=== PATIENT | male | born 1955 | race Caucasian/White ===

== ENCOUNTER → 2016-10-14 | Outpatient (CLI) | payer BC ==
[~2016-10-14] MED LIST: ANT PO; ASPEC81; GEMF600T3 PO; METO50TA7; MULT-506 PO; OMEG10007 PO; TERBINAFINE PO; [UNRECOGNIZED DRUG - OTHER] PO
[2016-10-14 13:58] LABS: ALT/SGPT 57 U/L (12-78); AST/SGOT 36 U/L (15-37); BLOOD UREA NITROGEN 13 mg/dl (7-18); CALCIUM 8.8 mg/dl (8.5-10.1); CARBON DIOXIDE 28 mmol/L (21-32); CHLORIDE 103 mmol/L (98-107); CHOLESTEROL 199 mg/dl (0-200); GLUCOSE 110 mg/dl (70-99); POTASSIUM 4.2 mmol/L (3.5-5.1); SODIUM 139 mmol/L (136-145)
[2016-10-14 14:00] LABS: ALKALINE PHOSPHATASE 65 U/L (45-117); CHOLESTEROL/HDL RATIO 6.2; HDL CHOLESTEROL 32 mg/dl; TRIGLYCERIDES 275 mg/dl (0-150); VERY LOW DENSITY LIPOPROT CALC 55 mg/dl
== END | disposition home or self-care (01) ==
LOC: C.LABSPEC 12:48
PROVIDERS: ATTEND Internal Medicine
DX: Z00.01 Encounter for general adult medical examination with abnormal findings (principal); E78.5 Hyperlipidemia, unspecified; I10 Essential (primary) hypertension

== ENCOUNTER → 2017-03-11 | Outpatient (CLI) | payer BC | END | disposition home or self-care (01) | LOC: C.PATHSPEC 13:30 | PROVIDERS: ATTEND Plastic Surgery | DX: L57.0 Actinic keratosis (principal) ==

== ENCOUNTER 2020-12-14 13:57 | Inpatient (IN) ==
[2020-12-14] MEDS ORDERED: dexAMETHasone**PF** 10 MG/ML VIAL IV ONE (14:11)
[2020-12-14] MEDS ORDERED: ALBUT/IPRATROP 3MG/0.5MG NEB 3 ML VIAL INH STA (14:11)
[2020-12-14 15:11] LABS: Basophils # (auto) 0.01 K/uL (0-0.2); Basophils % (auto) 0.1 %; Hematocrit (blood only) 41.9 % (42-52); Hemoglobin 15.3 g/dL (14.0-18.0); Immature Granulocytes # (auto) 0.04 K/uL (0.00-0.02); Immature Granulocytes % (auto) 0.5 %; Lymphocytes # (auto) 0.71 K/uL (1.2-3.4); Mean Corpuscular Hemoglobin 33.7 pg (25-34); Mean Corpuscular Hgb Conc 36.5 g/dL (32-36); Mean Corpuscular Volume 92.3 fL (80-100); Monocytes % (auto) 5.1 %; Neutrophils # (auto) 6.71 K/uL (1.4-6.5); Neutrophils % (auto) 85.3 %; Platelet Count 146 K/uL (130-400); RDW Standard Deviation 44.1 fL (36.4-46.3); Red Blood Count 4.54 M/uL (4.7-6.1); White Blood Count 7.87 K/uL (4.8-10.8)
--- NOTE | 2020-12-14 15:14 | XRay Report ---
XR chest 1V portable HISTORY: 65 years-old Male Dyspnea acute shortness of breath COMPARISON: Chest radiographs 05/12/2019 TECHNIQUE: Portable AP view of the chest FINDINGS: Cardiac silhouette is mildly enlarged. Extensive bilateral mixed interstitial and alveolar opacities. No pneumothorax or large pleural effusion. Spondylitic spurring of the spine. IMPRESSION: Extensive bilateral airspace opacities suggests multifocal pneumonia. ACT 112: Negative or not required by law. The above report was generated using voice recognition software. It may contain grammatical, syntax o r spelling errors. Electronically signed by: Sergio Garza M.D. 12/14/2020 3:13 PM
[2020-12-14 15:33] LABS: Albumin Level 2.9 gm/dl (3.4-5.0); BUN Creatinine Ratio 13.4 (10-20); Calcium 8.3 mg/dl (8.5-10.1); Creatinine Clr Calc Pharmacy 74.8 ml/min; Est GFR (African American) 70.6 ml/min; Est GFR (Non-African American) 60.9 ml/min; Potassium 3.9 mmol/L (3.5-5.1)
[2020-12-14 15:38] LABS: Albumin Globulin Ratio 0.6 (0.9-2); Bilirubin,Total 0.7 mg/dl (0.2-1); Globulin 4.8 gm/dl (2.5-4.0); Total Protein 7.7 gm/dl (6.4-8.2); Troponin I 0.027 ng/ml (0-0.045)
--- NOTE | 2020-12-14 18:07 | Emergency Department Note ---
History of Present Illness General Chief complaint: Shortness of Breath/Dyspnea Stated complaint: SOB/THINKS HE MAY HAVE COVID Time Seen by Provider: 12/14/20 14:10 Source: patient, family (Female friend at the bedside) and RN notes reviewed Mode of arrival: ambulatory Limitations: no limitations History of Present Illness Provider complaint: Shortness of breath, probable Covid This patient is a 65-year-old male who presents to the emergency department with complaints of shortness of breath. He states his symptoms began approximately 6 days ago with sinus congestion. He did receive his Covid vaccine about 3 days ago and states since that time he has developed shortness of breath, cough and fevers. He does not check his temperature so does not know what his temperature was. He has been taking occasional Tylenol, his last dose was early this morning. He has been able to keep up with his fluid intake but has not been eating. He denies any vomiting or diarrhea. Patient denies any significant chest pain but admits to a dry cough. He is concerned about his hospitalization as he does not have health insurance. Patient denies any history of smoking or diabetes. Home Medications Medication Instructions Recorded Confirmed Type allopurinol 100 mg PO DAILY 12/14/20 12/14/20 History amoxicillin-pot clavulanate 1 tab PO TID 12/14/20 12/14/20 History ascorbic acid (vitamin C) [Vitamin 1,500 mg PO DAILY 12/14/20 12/14/20 History C] cholecalciferol (vitamin D3) 12.5 mcg PO DAILY 12/14/20 12/14/20 History [Vitamin D3] metoprolol tartrate See Rx Instructions .ROUTE .COMPLEX 12/14/20 12/14/20 History zinc 50 mg PO DAILY 12/14/20 12/14/20 History Allergies Allergy/AdvReac Type Severity Reaction Status Date / Time Iodinated Contrast Media Allergy Intermediate Hives Verified 12/14/20 15:08 Past Med/Surg History Medical History (Updated 12/14/20 @ 20:47 by Kathy Dickson MD) Acute respiratory failure COVID-19 Hypertension Psoriasis Social History (Updated 12/14/20 @ 20:41 by Kathy Dickson MD) Smoking Status: Never smoker Preferred Language: Kinyarwanda marital status: Single current occupational status: employed Feels Safe at Home: Yes Physical Exam Vital Signs Vital Signs - 24 hr 12/14/20 14:00 12/14/20 14:26 12/14/20 14:29 Temperature 37.5 C Temperature Source Temporal Artery Scan Pulse Rate 103 H 100 H Pulse Rate [Right Radial] 100 H Pulse Rate from SpO2 Sensor 100 H Pulse Rhythm Regular Respiratory Rate 25 H 26 H Respiratory Effort / Characteristics Non-Labored Spontaneous Spontaneous Respiratory Depth Normal Respiratory Pattern Regular Blood Pressure 187/96 H Blood Pressure Mean 126 Pulse Oximetry 87 L 94 94 Oxygen Delivery Method Room Air Nasal Cannula Oxygen Flow Rate 4 Fraction of Inspired Oxygen Sepsis Recent Fever Within 48 Hours No Sepsis New/Unexplained Change in Mental Status No Sepsis Action Taken by Nursing Physician Notified Oxygen Flow Rate - Titration Pulse Oximetry Post Tiitration 12/14/20 14:30 12/14/20 14:31 12/14/20 14:40 Temperature Temperature Source Pulse Rate 100 H 101 H 102 H Pulse Rate [Right Radial] Pulse Rate from SpO2 Sensor 100 H 101 H 103 H Pulse Rhythm Respiratory Rate Respiratory Effort / Characteristics Respiratory Depth Respiratory Pattern Blood Pressure 179/98 H Blood Pressure Mean 125 Pulse Oximetry 95 94 92 Oxygen Delivery Method Oxygen Flow Rate Fraction of Inspired Oxygen Sepsis Recent Fever Within 48 Hours Sepsis New/Unexplained Change in Mental Status Sepsis Action Taken by Nursing Oxygen Flow Rate - Titration Pulse Oximetry Post Tiitration 12/14/20 14:44 12/14/20 14:50 12/14/20 14:57 Temperature Temperature Source Pulse Rate 79 101 H 103 H Pulse Rate [Right Radial] Pulse Rate from SpO2 Sensor 78 101 H Pulse Rhythm Respiratory Rate 22 Respiratory Effort / Characteristics Respiratory Depth Respiratory Pattern Blood Pressure 105/68 Blood Pressure Mean 80 Pulse Oximetry 98 91 92 Oxygen Delivery Method Nasal Cannula Oxygen Flow Rate 4 Fraction of Inspired Oxygen Sepsis Recent Fever Within 48 Hours Sepsis New/Unexplained Change in Mental Status Sepsis Action Taken by Nursing Oxygen Flow Rate - Titration 4 Pulse Oximetry Post Tiitration 92 12/14/20 15:00 12/14/20 15:01 12/14/20 15:10 Temperature Temperature Source Pulse Rate 103 H 113 H 102 H Pulse Rate [Right Radial] Pulse Rate from SpO2 Sensor 103 H 98 H 101 H Pulse Rhythm Respiratory Rate 31 H Respiratory Effort / Characteristics Respiratory Depth Respiratory Pattern Blood Pressure 202/103 H Blood Pressure Mean 136 Pulse Oximetry 90 91 92 Oxygen Delivery Method Oxygen Flow Rate 4 Fraction of Inspired Oxygen Sepsis Recent Fever Within 48 Hours Sepsis New/Unexplained Change in Mental Status Sepsis Action Taken by Nursing Oxygen Flow Rate - Titration Pulse Oximetry Post Tiitration 12/14/20 15:15 12/14/20 15:20 12/14/20 15:30 Temperature Temperature Source Pulse Rate Pulse Rate [Right Radial] Pulse Rate from SpO2 Sensor 109 H 101 H 101 H Pulse Rhythm Respiratory Rate Respiratory Effort / Characteristics Respiratory Depth Respiratory Pattern Blood Pressure 195/109 H 139/93 Blood Pressure Mean 137 108 Pulse Oximetry 86 L 92 92 Oxygen Delivery Method Oxygen Flow Rate Fraction of Inspired Oxygen Sepsis Recent Fever Within 48 Hours Sepsis New/Unexplained Change in Mental Status Sepsis Action Taken by Nursing Oxygen Flow Rate - Titration Pulse Oximetry Post Tiitration 12/14/20 15:32 12/14/20 15:40 12/14/20 15:50 Temperature Temperature Source Pulse Rate Pulse Rate [Right Radial] Pulse Rate from SpO2 Sensor 101 H 101 H 96 H Pulse Rhythm Respiratory Rate Respiratory Effort / Characteristics Respiratory Depth Respiratory Pattern Blood Pressure Blood Pressure Mean Pulse Oximetry 92 91 92 Oxygen Delivery Method Oxygen Flow Rate 4 Fraction of Inspired Oxygen Sepsis Recent Fever Within 48 Hours Sepsis New/Unexplained Change in Mental Status Sepsis Action Taken by Nursing Oxygen Flow Rate - Titration Pulse Oximetry Post Tiitration 12/14/20 16:00 12/14/20 16:01 12/14/20 16:10 Temperature Temperature Source Pulse Rate Pulse Rate [Right Radial] Pulse Rate from SpO2 Sensor 95 H 98 H 100 H Pulse Rhythm Respiratory Rate 18 Respiratory Effort / Characteristics Respiratory Depth Respiratory Pattern Blood Pressure 152/77 H Blood Pressure Mean 102 Pulse Oximetry 90 91 91 Oxygen Delivery Method Oxygen Flow Rate 4 4 Fraction of Inspired Oxygen Sepsis Recent Fever Within 48 Hours Sepsis New/Unexplained Change in Mental Status Sepsis Action Taken by Nursing Oxygen Flow Rate - Titration Pulse Oximetry Post Tiitration 12/14/20 16:20 12/14/20 16:30 12/14/20 16:31 Temperature Temperature Source Pulse Rate Pulse Rate [Right Radial] Pulse Rate from SpO2 Sensor 94 H 98 H 100 H Pulse Rhythm Respiratory Rate Respiratory Effort / Characteristics Respiratory Depth Respiratory Pattern Blood Pressure 178/102 H Blood Pressure Mean 127 Pulse Oximetry 92 91 91 Oxygen Delivery Method Oxygen Flow Rate Fraction of Inspired Oxygen Sepsis Recent Fever Within 48 Hours Sepsis New/Unexplained Change in Mental Status Sepsis Action Taken by Nursing Oxygen Flow Rate - Titration Pulse Oximetry Post Tiitration 12/14/20 16:40 12/14/20 17:00 12/14/20 17:28 Temperature Temperature Source Pulse Rate 99 H Pulse Rate [Right Radial] 94 H Pulse Rate from SpO2 Sensor 97 H 96 H Pulse Rhythm Respiratory Rate 24 32 H Respiratory Effort / Characteristics Spontaneous Respiratory Depth Respiratory Pattern Blood Pressure 157/100 H Blood Pressure Mean 119 Pulse Oximetry 90 89 L 93 Oxygen Delivery Method High Flow Nasal Cannula Oxygen Flow Rate 40 Fraction of Inspired Oxygen 50 Sepsis Recent Fever Within 48 Hours Sepsis New/Unexplained Change in Mental Status Sepsis Action Taken by Nursing Oxygen Flow Rate - Titration Pulse Oximetry Post Tiitration 12/14/20 17:30 12/14/20 18:00 12/14/20 18:20 Temperature Temperature Source Pulse Rate 94 H 93 H 97 H Pulse Rate [Right Radial] Pulse Rate from SpO2 Sensor 96 H 92 H 91 H Pulse Rhythm Respiratory Rate 25 H 33 H 19 Respiratory Effort / Characteristics Respiratory Depth Respiratory Pattern Blood Pressure 136/75 176/99 H Blood Pressure Mean 95 124 Pulse Oximetry 92 93 93 Oxygen Delivery Method Oxygen Flow Rate Fraction of Inspired Oxygen Sepsis Recent Fever Within 48 Hours Sepsis New/Unexplained Change in Mental Status Sepsis Action Taken by Nursing Oxygen Flow Rate - Titration Pulse Oximetry Post Tiitration 12/14/20 18:30 12/14/20 18:31 12/14/20 18:40 Temperature Temperature Source Pulse Rate 92 H 91 H 92 H Pulse Rate [Right Radial] Pulse Rate from SpO2 Sensor 92 H 91 H 86 Pulse Rhythm Respiratory Rate Respiratory Effort / Characteristics Respiratory Depth Respiratory Pattern Blood Pressure 146/80 H Blood Pressure Mean 102 Pulse Oximetry 94 93 94 Oxygen Delivery Method Oxygen Flow Rate Fraction of Inspired Oxygen Sepsis Recent Fever Within 48 Hours Sepsis New/Unexplained Change in Mental Status Sepsis Action Taken by Nursing Oxygen Flow Rate - Titration Pulse Oximetry Post Tiitration 12/14/20 18:50 12/14/20 19:00 12/14/20 19:01 Temperature Temperature Source Pulse Rate 90 93 H Pulse Rate [Right Radial] 97 H Pulse Rate from SpO2 Sensor 89 94 H Pulse Rhythm Respiratory Rate 33 H 26 H 32 H Respiratory Effort / Characteristics Spontaneous Respiratory Depth Respiratory Pattern Blood Pressure Blood Pressure Mean Pulse Oximetry 93 94 93 Oxygen Delivery Method High Flow Nasal Cannula Oxygen Flow Rate 40 Fraction of Inspired Oxygen 45 Sepsis Recent Fever Within 48 Hours Sepsis New/Unexplained Change in Mental Status Sepsis Action Taken by Nursing Oxygen Flow Rate - Titration Pulse Oximetry Post Tiitration 12/14/20 19:10 12/14/20 19:20 12/14/20 19:30 Temperature Temperature Source Pulse Rate 90 92 H 92 H Pulse Rate [Right Radial] Pulse Rate from SpO2 Sensor 91 H 93 H 92 H Pulse Rhythm Respiratory Rate 24 Respiratory Effort / Characteristics Respiratory Depth Respiratory Pattern Blood Pressure 163/78 H Blood Pressure Mean 106 Pulse Oximetry 93 92 93 Oxygen Delivery Method Oxygen Flow Rate Fraction of Inspired Oxygen Sepsis Recent Fever Within 48 Hours Sepsis New/Unexplained Change in Mental Status Sepsis Action Taken by Nursing Oxygen Flow Rate - Titration Pulse Oximetry Post Tiitration 12/14/20 19:31 12/14/20 19:40 12/14/20 19:50 Temperature Temperature Source Pulse Rate 91 H 91 H 91 H Pulse Rate [Right Radial] Pulse Rate from SpO2 Sensor 91 H 95 H 92 H Pulse Rhythm Respiratory Rate 33 H 35 H 25 H Respiratory Effort / Characteristics Respiratory Depth Respiratory Pattern Blood Pressure Blood Pressure Mean Pulse Oximetry 93 93 93 Oxygen Delivery Method Oxygen Flow Rate Fraction of Inspired Oxygen Sepsis Recent Fever Within 48 Hours Sepsis New/Unexplained Change in Mental Status Sepsis Action Taken by Nursing Oxygen Flow Rate - Titration Pulse Oximetry Post Tiitration 12/14/20 20:00 12/14/20 20:01 12/14/20 20:10 Temperature Temperature Source Pulse Rate 94 H 92 H 90 Pulse Rate [Right Radial] Pulse Rate from SpO2 Sensor 89 92 H 90 Pulse Rhythm Respiratory Rate 34 H 30 H 26 H Respiratory Effort / Characteristics Respiratory Depth Respiratory Pattern Blood Pressure 178/102 H Blood Pressure Mean 127 Pulse Oximetry 93 94 93 Oxygen Delivery Method Oxygen Flow Rate Fraction of Inspired Oxygen Sepsis Recent Fever Within 48 Hours Sepsis New/Unexplained Change in Mental Status Sepsis Action Taken by Nursing Oxygen Flow Rate - Titration Pulse Oximetry Post Tiitration Vital signs reviewed. General: Somewhat ill-appearing 65-year-old male, in some discomfort HEENT: No scleral icterus, PERRLA, neck supple. Atraumatic. Cardiovascular: Regular rate and rhythm, no extra sounds. Pulmonary: Coarse breath sounds bilaterally with increased work of breathing on nasal cannula oxygen. Dry cough, freq Abdomen: Soft, obese, nontender, nondistended, positive bowel sounds. Musculoskeletal: Atraumatic, no peripheral edema. Neurologic: Patient awake alert and oriented x 3 Skin: Warm, dry, no rash Course Administered Medications Discontinued Medications Albuterol (Albut/Ipratrop 3mg/0.5mg Neb 3 Ml Vial) 3 ml INH NOW STA Stop: 12/14/20 14:12 Last Admin: 12/14/20 14:29 Dose: 3 ml Documented by: [id number] Dexamethasone Sodium Phosphate (DexamethasonePf 10 Mg/Ml Vial) 6 mg IV NOW ONE Stop: 12/14/20 14:12 Last Admin: 12/14/20 14:50 Dose: 6 mg Documented by: [id number] Critical Care Time Critical Care Time: Yes Total Critical Care Time: 30 I have personally spent greater than 30 minutes of critical care time in the direct management of this patient. This includes bedside care, interpretation of diagnostic studies, and testing, discussion with consultants, patient, and family members, and other required patient management activities. This 30 minutes is in excess of all separately billable procedures. Medical Decision Making Differential Diagnosis Viral syndrome, otitis, pharyngitis, pneumonia, influenza, meningitis, urinary tract infection, sepsis, bacteremia, as well as other pathologies. Medical Records Attestation: I reviewed the patient's medical records. Home Medications Current Medication List: was personally reviewed by me Laboratory Data Attestation: I reviewed the patient's lab results. Result diagrams: 12/14/20 14:48 12/14/20 14:48 Lab Results 12/14/20 12/14/20 12/14/20 Range/Units 14:48 14:48 14:48 WBC 7.87 (4.8-10.8) K/uL RBC 4.54 L (4.7-6.1) M/uL Hgb 15.3 (14.0-18.0) g/dL Hct 41.9 L (42-52) % MCV 92.3 (80-100) fL MCH 33.7 (25-34) pg MCHC 36.5 H (32-36) g/dL RDW Std Deviation 44.1 (36.4-46.3) fL RDW Coeff of [place] 13.0 (11.5-14.5) % Plt Count 146 (130-400) K/uL MPV 11.0 H (7.4-10.4) fL Immature Gran % (Auto) 0.5 % Neut % (Auto) 85.3 % Lymph % (Auto) 9.0 % [place] % (Auto) 5.1 % Eos % (Auto) 0.0 % Baso % (Auto) 0.1 % Neut # (Auto) 6.71 H (1.4-6.5) K/uL Lymph # (Auto) 0.71 L (1.2-3.4) K/uL [place] # (Auto) 0.40 (0.11-0.59) K/uL Eos # (Auto) 0.00 (0-0.5) K/uL Baso # (Auto) 0.01 (0-0.2) K/uL Immature Gran # (Auto) 0.04 H (0.00-0.02) K/uL Sodium 125 L (136-145) mmol/L Potassium 3.9 (3.5-5.1) mmol/L Chloride 92 L (98-107) mmol/L Carbon Dioxide 25 (21-32) mmol/L Anion Gap 8.0 (3-11) BUN 17 (7-18) mg/dl Creatinine 1.25 (0.6-1.4) mg/dl Est Cr Clr Drug Dosing 74.8 ml/min Est GFR ( Amer) 70.6 ml/min Est GFR (Non-Af Amer) 60.9 ml/min BUN/Creatinine Ratio 13.4 (10-20) Glucose 167 H (70-99) mg/dl Calcium 8.3 L (8.5-10.1) mg/dl Magnesium 2.0 (1.8-2.4) mg/dl Total Bilirubin 0.7 (0.2-1) mg/dl AST 100 H (15-37) U/L ALT 53 (12-78) U/L Alkaline Phosphatase 63 (45-117) U/L Troponin I 0.027 (0-0.045) ng/ml C-Reactive Protein 9.51 H (0-0.29) mg/dl Total Protein 7.7 (6.4-8.2) gm/dl Albumin 2.9 L (3.4-5.0) gm/dl Globulin 4.8 H (2.5-4.0) gm/dl Albumin/Globulin Ratio 0.6 L (0.9-2) COVID-19 Eval Order SARS-CoV-2 (PCR) (Negative) 12/14/20 12/14/20 Range/Units 14:57 14:57 WBC (4.8-10.8) K/uL RBC (4.7-6.1) M/uL Hgb (14.0-18.0) g/dL Hct (42-52) % MCV (80-100) fL MCH (25-34) pg MCHC (32-36) g/dL RDW Std Deviation (36.4-46.3) fL RDW Coeff of [place] (11.5-14.5) % Plt Count (130-400) K/uL MPV (7.4-10.4) fL Immature Gran % (Auto) % Neut % (Auto) % Lymph % (Auto) % [place] % (Auto) % Eos % (Auto) % Baso % (Auto) % Neut # (Auto) (1.4-6.5) K/uL Lymph # (Auto) (1.2-3.4) K/uL [place] # (Auto) (0.11-0.59) K/uL Eos # (Auto) (0-0.5) K/uL Baso # (Auto) (0-0.2) K/uL Immature Gran # (Auto) (0.00-0.02) K/uL Sodium (136-145) mmol/L Potassium (3.5-5.1) mmol/L Chloride (98-107) mmol/L Carbon Dioxide (21-32) mmol/L Anion Gap (3-11) BUN (7-18) mg/dl Creatinine (0.6-1.4) mg/dl Est Cr Clr Drug Dosing ml/min Est GFR ( Amer) ml/min Est GFR (Non-Af Amer) ml/min BUN/Creatinine Ratio (10-20) Glucose (70-99) mg/dl Calcium (8.5-10.1) mg/dl Magnesium (1.8-2.4) mg/dl Total Bilirubin (0.2-1) mg/dl AST (15-37) U/L ALT (12-78) U/L Alkaline Phosphatase (45-117) U/L Troponin I (0-0.045) ng/ml C-Reactive Protein (0-0.29) mg/dl Total Protein (6.4-8.2) gm/dl Albumin (3.4-5.0) gm/dl Globulin (2.5-4.0) gm/dl Albumin/Globulin Ratio (0.9-2) COVID-19 Eval Order Covid19 at [facility] SARS-CoV-2 (PCR) POSITIVE A* (Negative) Imaging Data Radiologist's Impression: Chest X-Ray 12/14/20 14:11 XR chest 1V portable HISTORY: 65 years-old Male Dyspnea acute shortness of breath COMPARISON: Chest radiographs 05/12/2019 TECHNIQUE: Portable AP view of the chest FINDINGS: Cardiac silhouette is mildly enlarged. Extensive bilateral mixed interstitial and alveolar opacities. No pneumothorax or large pleural effusion. Spondylitic spurring of the spine. IMPRESSION: Extensive bilateral airspace opacities suggests multifocal pneumonia. ACT 112: Negative or not required by law. The above report was generated using voice recognition software. It may contain grammatical, syntax or spelling errors. Electronically signed by: Sergio Garza M.D. 12/14/2020 3:13 PM ECG Data Attestation: I personally reviewed and interpreted this ECG as follows: Indication: + tachycardia Rate (beats per minute): 101 Rhythm: + sinus tachycardia ECG Intervals/blocks: + Normal QRS and + Normal QT-c ECG [place]: + Normal ECG ST segments: + Normal ST segments ECG Findings: no PACs and no PVCs Blood Pressure Blood Pressure Findings: Elevated blood pressure Blood Pressure Disposition: further management by hospitalist MDM Narrative This patient was evaluated and appeared to be in no significant distress. IV access was obtained and laboratory work was drawn. An order for cardiac monitoring was placed and the patient is noted to be in a sinus tachycardia 101 bpm. A DuoNeb treatment was ordered as well as 6 mg of IV dexamethasone. Patient's pulse ox did improve with supplemental nasal cannula oxygen at 4 to 5 L however he was only saturating just over 90% and sometimes would dip down into the high 80s on 5 L. Patient was switched to high flow nasal cannula oxygen. Chest x-ray is concerning for multifocal wall bilateral pulmonary infiltrates. Covid swab is positive. Troponin is negative at 0.027. Case was discussed with the hospitalist, Dr. Rizvi who will evaluate the patient for admission and further management. Patient was made aware of the plan and agrees. Impression & Plan Pneumonia due to 2019 novel coronavirus, Respiratory failure with hypoxia Discharge Plan Visit Data Chief Complaint: Shortness of Breath/Dyspnea Stated Complaint: SOB/THINKS HE MAY HAVE COVID ED Provider: Kathy Dickson Discharge Problem: Pneumonia due to 2019 novel coronavirus, Respiratory failure with hypoxia Forms Stand Alone Forms: My [facility] Prescriptions Prescriptions: No Action allopurinol 100 mg tablet 100 mg PO DAILY RF: 0 ascorbic acid (vitamin C) [Vitamin C] 500 mg Tablet 1,500 mg PO DAILY RF: 0 metoprolol tartrate 50 mg tablet See Rx Instructions .ROUTE .COMPLEX RF: 0 zinc 50 mg Tablet 50 mg PO DAILY RF: 0 amoxicillin-pot clavulanate 500-125 mg tablet 1 tab PO TID RF: 0 cholecalciferol (vitamin D3) [Vitamin D3] 25 mcg (1,000 unit) Capsule 12.5 mcg PO DAILY RF: 0 Discharge Problem: Respiratory failure with hypoxia Qualifiers: Chronicity: acute Qualified Code(s): J96.01 - Acute respiratory failure with hypoxia
--- NOTE | 2020-12-14 18:56 | History & Physical Report ---
Date of Service December 14, 2020 Assessment & Plan (1) Acute respiratory failure: Patient is here with acute respiratory failure mostly hypoxemic in nature he is progress to high flow nasal cannula 40 L 50% Respiratory failure secondary to Covid pneumonia (2) COVID-19: Patient has Covid pneumonia extensive bilateral groundglass opacities and significant oxygen requirements. He will be initiated on remdesivir. I personally reviewed most recent research for multiple parties regarding remdesivir use given the patient's timing is now approximately 10 days. There seems to be no defined consensus even within our website or other reputable government based agencies, about whether to use or not to use. Following the infectious disease Society of [place] they found that using an antiviral was beneficial in reducing time to well but not reducing mortality. To this end I have chosen to use remdesivir in this patient. Patient will also be on dexamethasone 6 mg a day patient will have a CRP and if elevated and fitting within her guidelines for tocilizumab use may consider dosing of tocilizumab (3) Hypertension: Continue metoprolol dosing (4) Psoriasis: (5) DVT prophylaxis: Patient will be on Covid DVT prophylaxis 0.5/kg every 12 History of Present Illness Primary Care Provider: Jesus Sutherland MD 65-year-old male who suffers from psoriasis and hypertension who presents with approximately 10-day history of progressive pulmonary symptoms. The patient works at [employer] and 3 weeks ago other members of the staff were diagnosed with Covid. At that time the patient underwent rapid test at urgent center and his Covid test was negative. Approximately 2 Wednesdays prior to admission he began having headache pressure and chest congestion however he still proceeded to get his Covid vaccine approximately 6 days ago. His symptoms progressively worsened and his respiratory status became with more and more shortness of breath nonproductive cough increasing fatigue and sinus and headache pain he has had no diarrhea he has had altered taste of food and anorexia. In the emergency department he is found to have Covid 19+ testing he is severely tachypneic he is markedly hypoxemic requiring high flow nasal cannula his chest x-ray has significant changes. CRP is pending LFTs and platelets are appropriate Allergies Allergy/AdvReac Type Severity Reaction Status Date / Time Iodinated Contrast Media Allergy Intermediate Hives Verified 12/14/20 15:08 Home Medications Medication Instructions Recorded Confirmed Type allopurinol 100 mg PO DAILY 12/14/20 12/14/20 History amoxicillin-pot clavulanate 1 tab PO TID 12/14/20 12/14/20 History ascorbic acid (vitamin C) [Vitamin 1,500 mg PO DAILY 12/14/20 12/14/20 History C] cholecalciferol (vitamin D3) 12.5 mcg PO DAILY 12/14/20 12/14/20 History [Vitamin D3] metoprolol tartrate See Rx Instructions .ROUTE .COMPLEX 12/14/20 12/14/20 His tory zinc 50 mg PO DAILY 12/14/20 12/14/20 History Past Med/Surg History Social History Smoking Status: Never smoker Preferred Language: Czech Feels Safe at Home: Yes Review of Systems Review of Systems: Mild distress and fatigue no headache, blurry or double vision no speech or swallowing issues no chest pain, pressure or palpitations Severe shortness of breath accessory muscle use Slight distention his abdomen nontender no diarrhea no dysuria, hematuria or frequency no focal joint pain or swelling no back pain, CVA tenderness or radicular pain Patient had a flare of his psoriasis of late no focal signs of weakness or numbness or altered sensation no complaints of anxiety or depression.. Physical Exam Physical Exam: The patient appeared to severe distress Vital signs as documented. Head exam is normocephalic atraumatic Neck is without JVD, thyromegaly, or carotid bruits. Course breath sounds bilaterally with decreased air movement Cardiac exam, Rhythm is tachycardic.. No murmurs, rubs or gallops. Abdominal exam reveals normal bowel sounds, soft distention a protuberance Extremities are nonedematous and both pedal pulses are present Neurologic exam is alert and oriented, no focal loss of strength or sensation Skin is lytic patches on his lower extremity and umbilicus Psychologically is without concerns for anxiety or depression Results & Data Results & Data ([facility]) Vital Signs (Past 12 Hours) Vital Signs Temp Pulse Pulse Resp BP Pulse Ox 12/14/20 18:00 93 H 33 H 176/99 H 93 12/14/20 17:30 94 H 25 H 136/75 92 12/14/20 17:28 94 H 32 H 93 12/14/20 17:00 99 H 24 157/100 H 89 L 12/14/20 16:40 90 12/14/20 16:31 91 12/14/20 16:30 178/102 H 91 12/14/20 16:20 92 12/14/20 16:10 18 91 12/14/20 16:01 152/77 H 91 12/14/20 16:00 90 12/14/20 15:50 92 12/14/20 15:40 91 12/14/20 15:32 92 12/14/20 15:30 139/93 92 12/14/20 15:20 92 12/14/20 15:15 195/109 H 86 L 12/14/20 15:10 102 H 31 H 92 12/14/20 15:01 113 H 91 12/14/20 15:00 103 H 202/103 H 90 12/14/20 14:57 103 H 22 92 12/14/20 14:50 101 H 91 12/14/20 14:44 79 105/68 98 12/14/20 14:40 102 H 92 12/14/20 14:31 101 H 94 12/14/20 14:30 100 H 179/98 H 95 12/14/20 14:29 100 H 26 H 94 12/14/20 14:26 100 H 94 12/14/20 14:00 99.5 F 103 H 25 H 187/96 H 87 L Chest X-Ray 12/14/20 14:11 XR chest 1V portable HISTORY: 65 years-old Male Dyspnea acute shortness of breath COMPARISON: Chest radiographs 05/12/2019 TECHNIQUE: Portable AP view of the chest FINDINGS: Cardiac silhouette is mildly enlarged. Extensive bilateral mixed interstitial and alveolar opacities. No pneumothorax or large pleural effusion. Spondylitic spurring of the spine. IMPRESSION: Extensive bilateral airspace opacities suggests multifocal pneumonia. ACT 112: Negative or not required by law. The above report was generated using voice recognition software. It may contain grammatical, syntax or spelling errors. Electronically signed by: Sergio Garza M.D. 12/14/2020 3:13 PM Code Status & VTE Plan VTE Prophylaxis Plan VTE Prophylaxis will be ordered: Yes PG Care Time/CCT Total # of Minutes Spent Total Time Spent with Patient: Total time spent is greater than 50% in coordination of care (as documented) at patient's floor/unit and/or counseling patient: Coding Level of Care Code 09707 Initial Inpt Care Lvl 3 Diagnoses Acute respiratory failure J96.00 COVID-19 U07.1 Hypertension I10 Psoriasis L40.9 DVT prophylaxis Z29.9
--- NOTE | 2020-12-14 20:31 | Critical Care Consultation ---
Date of Consultation December 14, 2020 Assessment & Plan (1) Respiratory failure with hypoxia: Patient with 10-day symptom onset, positive COVID-19 PCR. CRP 9.5 CXR with extensive bilateral airspace opacities suggestive of multifocal pneumonia Currently maintaining oxygen saturation in the mid 90s with 35 L 40% of HFNC. Continue titrating oxygen with goal sat 88 to 92%. Started on dexamethasone and remdesivir. hold on Tocilizumab as patient is 10 days from symptom onset with mildly elevated CRP No evidence of secondary infection at this time. Will check pro Nathan. No clear indication for antibiotics at this time. Patient encouraged to self prone, pulm toilet continue lovenox continuous pulse ox monitorimg admitted to PCU telemetry for now, reconsult if ICU level care is needed (2) Pneumonia due to 2019 novel coronavirus: as above (3) Hypertension: Continue MTP home dose, monitor History of Present Illness History of Present Illness History Nathan is a 65-year-old male with PMH including psoriasis and HTN who presented to the emergency department earlier this afternoon with complaints of ongoing shortness of breath and cough with increased fatigue which have been ongoing for the past 10 days. 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 Approximately 10 days ago he began to have headache and cough but proceeded to get his Covid vaccine 1 week ago. Patient was found to be tachypneic and hypoxemic in the emergency department and his COVID-19 test was positive. He was initially started on nasal cannula but had to be switched to HFNC. He was started on dexamethasone and remdesivir. Patient was evaluated in the ER and at the time appeared comfortable on 40% FiO2 and 35 L on high flow nasal cannula. Patient reaffirmed prior headaches and cough with chest congestion that started about 10 days ago after exposure to Covid positive employees at work. Current symptoms include fatigue, loss of taste and appetite, shortness of breath, and productive cough with small amounts of hemoptysis. He denies current headache, dizziness, nausea or vomiting, chest pain or palpitations, sore throat, diarrhea, abdominal pain, or swelling in hands and feet. Patient was asked to be evaluated by ICU team regarding use of Tocilizumab. He has a mildly elevated CRP of 9.5 but it is 10 days out from symptom onset. There is likely no clear benefit of use of Tocilizumab at this time and will hold administration for now. The patient is currently maintaining oxygen saturations in the mid 90s on HFNC and states that he feels better since oxygen administration. He was encouraged to self prone. No indication for ICU level of care at this time. Reconsult if further assistance needed. Allergies Allergy/AdvReac Type Severity Reaction Status Date / Time Iodinated Contrast Media Allergy Intermediate Hives Verified 12/14/20 15:08 Home Medications Medication Instructions Recorded Confirmed Type allopurinol 100 mg PO DAILY 12/14/20 12/14/20 History amoxicillin-pot clavulanate 1 tab PO TID 12/14/20 12/14/20 History ascorbic acid (vitamin C) [Vitamin 1,500 mg PO DAILY 12/14/20 12/14/20 History C] cholecalciferol (vitamin D3) 12.5 mcg PO DAILY 12/14/20 12/14/20 History [Vitamin D3] metoprolol tartrate See Rx Instructions .ROUTE .COMPLEX 12/14/20 12/14/20 History zinc 50 mg PO DAILY 12/14/20 12/14/20 History Patient History Medical History (Updated 12/15/20 @ 00:45 by JORDI Rosa) Acute respiratory failure COVID-19 Hypertension Psoriasis Social History (Updated 12/14/20 @ 20:41 by Kathy Dickson MD) Smoking Status: Never smoker Hx Alcohol Use: Yes Alcohol type: beer Hx Substance Use: No Preferred Language: Swedish Communication Ability: Effective Glass Checker Required: No Beliefs That Will Affect Care: None marital status: Single Current Living Situation: Spouse current occupational status: employed Feels Safe at Home: Yes Assistive Devices: Denture - Upper and Glasses Review of Systems Review of Systems: All systems reviewed & are unremarkable except as noted in HPI & below Physical Exam Constitutional: cooperative and comfortable Eyes: PERRL, conjunctivae normal, anicteric sclerae ENMT: external ear and nose normal, oropharynx normal Neck: trachea midline, no thyromegaly Respiratory: Mild tachypnea with nonlabored breathing, respiratory effort normal. Rhonchi auscultated bilaterally with diminished lung sounds in all hernandez. No crackles or wheezes. Symmetrical chest wall movement. Cardiovascular: RRR, no murmur, no edema Heart Sounds: normal S1 and normal S2 Vessels: no JVD Extremities: no edema Gastrointestinal (Abdomen): normal bowel sounds, soft, nontender, no hepatosplenomegaly Skin: no rashes, warm and dry Neurologic: PERRL, EOMI, accommodation nl, no face palsy, no dysarthria Psychiatric: A+Ox3, euthymic affect Results & Data Results & Data ([facility]) Vital Signs (Past 12 Hours) Vital Signs Temp Pulse Pulse Resp BP Pulse Ox 12/14/20 20:10 90 26 H 93 12/14/20 20:01 92 H 30 H 94 12/14/20 20:00 94 H 34 H 178/102 H 93 12/14/20 19:50 91 H 25 H 93 12/14/20 19:40 91 H 35 H 93 12/14/20 19:31 91 H 33 H 93 12/14/20 19:30 92 H 24 163/78 H 93 12/14/20 19:20 92 H 92 12/14/20 19:10 90 93 12/14/20 19:01 97 H 32 H 93 12/14/20 19:00 93 H 26 H 94 12/14/20 18:50 90 33 H 93 12/14/20 18:40 92 H 94 12/14/20 18:31 91 H 93 12/14/20 18:30 92 H 146/80 H 94 12/14/20 18:20 97 H 19 93 12/14/20 18:00 93 H 33 H 176/99 H 93 12/14/20 17:30 94 H 25 H 136/75 92 12/14/20 17:28 94 H 32 H 93 12/14/20 17:00 99 H 24 157/100 H 89 L 12/14/20 16:40 90 12/14/20 16:31 91 12/14/20 16:30 178/102 H 91 12/14/20 16:20 92 12/14/20 16:10 18 91 12/14/20 16:01 152/77 H 91 12/14/20 16:00 90 12/14/20 15:50 92 12/14/20 15:40 91 12/14/20 15:32 92 12/14/20 15:30 139/93 92 12/14/20 15:20 92 12/14/20 15:15 195/109 H 86 L 12/14/20 15:10 102 H 31 H 92 12/14/20 15:01 113 H 91 12/14/20 15:00 103 H 202/103 H 90 12/14/20 14:57 103 H 22 92 12/14/20 14:50 101 H 91 12/14/20 14:44 79 105/68 98 12/14/20 14:40 102 H 92 12/14/20 14:31 101 H 94 12/14/20 14:30 100 H 179/98 H 95 12/14/20 14:29 100 H 26 H 94 12/14/20 14:26 100 H 94 12/14/20 14:00 37.5 C 103 H 25 H 187/96 H 87 L Coding Level of Care Code 84593 Inpt Consult Level 3 Diagnoses Respiratory failure with hypoxia J96.01 Chronicity: acute Pneumonia due to 2019 novel coronavirus U07.1; J12.82 Hypertension I10 (1) Respiratory failure with hypoxia Chronicity: acute Qualified Code(s): J96.01 - Acute respiratory failure with hypoxia
[2020-12-14] MEDS ORDERED: ALUMINUM/MAGNESIUM SUSP 30 ML UDC PO PRN (22:15)
[2020-12-14] MEDS ORDERED: ONDANSETRON INJ 2 MG/ML 2 ML VIAL IV PRN (22:15)
[2020-12-14] MEDS ORDERED: POLYETHYLENE (MIRALAX) 17 GM PACK PO PRN (22:15)
[2020-12-14] MEDS ORDERED: MoRPHine SULFATE 2 MG/ML CARP IV PRN (22:15)
[2020-12-14] MEDS ORDERED: ACETAMINOPHEN 325 MG TAB PO PRN (22:15)
[2020-12-14] MEDS ORDERED: REMDESIVIR 200 MG in SODIUM CHLORIDE 0.9% 210 ML IV STA (22:18)
[2020-12-15] MEDS: METOPROLOL TARTRATE 25 MG TAB PO SCH ×2 (00:09→20:16)
[2020-12-15] MEDS: ENOXAPARIN INJ 60 MG/0.6 ML SYR SQ SCH ×3 (00:09→23:00)
[2020-12-15] MEDS: SODIUM CHLORIDE 0.9% 10ML FLUSH IV SCH ×2 (01:33→22:02)
[2020-12-15 02:25] LABS: Appearance Urine Clear (Clear); Bacteria Urine Automated Negative (Negative); Bilirubin Urine Negative (Negative); Blood Urine Negative (Negative); Color Urine Dark Yellow; Epithelial Cell Urine Auto >30 /lpf (0-5); Glucose Urine UA Negative (Negative); Ketones Urine 1+ (Negative); Leukocyte Esterase Urine Negative (Negative); Nitrite Urine Negative (Negative); Protein Urine 3+ (Negative); Specific Gravity Urine 1.027 (1.000-1.030); Urobilinogen Urine Negative (Negative); pH Urine 5.5 (4.5-7.5)
[2020-12-15 02:42] LABS: Cast Urine Automated 0 /lpf (0-5); Mucus Urine Present (None Prsent); RBC Urine Automated 0-4 /hpf (0-4)
[2020-12-15 06:13] LABS: Basophils # (auto) 0.01 K/uL (0-0.2); Basophils % (auto) 0.1 %; Hematocrit (blood only) 44.7 % (42-52); Hemoglobin 15.7 g/dL (14.0-18.0); Immature Granulocytes # (auto) 0.04 K/uL (0.00-0.02); Immature Granulocytes % (auto) 0.4 %; Lymphocytes # (auto) 1.02 K/uL (1.2-3.4); Mean Corpuscular Hemoglobin 33.3 pg (25-34); Mean Corpuscular Hgb Conc 35.1 g/dL (32-36); Mean Corpuscular Volume 94.7 fL (80-100); Mean Platelet Volume 11.1 fL (7.4-10.4); Monocytes # (auto) 0.75 K/uL (0.11-0.59); Monocytes % (auto) 7.3 %; Neutrophils # (auto) 8.39 K/uL (1.4-6.5); Neutrophils % (auto) 82.2 %; Platelet Count 205 K/uL (130-400); RDW Coefficient of Variation 12.9 % (11.5-14.5); RDW Standard Deviation 45.5 fL (36.4-46.3); Red Blood Count 4.72 M/uL (4.7-6.1); White Blood Count 10.21 K/uL (4.8-10.8)
--- NOTE | 2020-12-15 06:27 | Electrocardiogram Report ---
Test Reason : Blood Pressure : / mmHG Vent. Rate : 101 BPM Atrial Rate : 101 BPM P-R Int : 154 ms QRS Dur : 086 ms QT Int : 330 ms P-R-T Axes : 027 036 045 degrees QTc Int : 427 ms Sinus tachycardia Otherwise normal ECG When compared with ECG of 14-JUL-2012 00:07, Vent. rate has increased BY 41 BPM Confirmed by Fabian Hung ([id number]) on 12/15/2020 6:27:03 AM Referred By: REFERRED SELF Confirmed By:Fabian Hung
[2020-12-15 06:45] LABS: Albumin Level 2.9 gm/dl (3.4-5.0); BUN Creatinine Ratio 17.6 (10-20); Calcium 8.3 mg/dl (8.5-10.1); Creatinine Clr Calc Pharmacy 80.5 ml/min; Est GFR (African American) 78.9 ml/min; Est GFR (Non-African American) 68.1 ml/min; Potassium 3.9 mmol/L (3.5-5.1)
[2020-12-15 06:48] LABS: Albumin Globulin Ratio 0.6 (0.9-2); Bilirubin,Total 0.7 mg/dl (0.2-1); C Reactive Protein 10.5 mg/dl (0-0.29); Globulin 4.7 gm/dl (2.5-4.0); Total Protein 7.6 gm/dl (6.4-8.2)
[2020-12-15 06:52] LABS: INR 1.1 (0.9-1.1); Partial Thromboplastin Ratio 1.2; Partial Thromboplastin Time 30.3 Seconds (21.0-31.0); Prothrombin Time 10.9 Seconds (9.0-12.0)
[2020-12-15 06:53] LABS: D Dimer 1780 ug/L FEU (0-500)
[2020-12-15] MEDS: ZINC SULFATE 220 MG CAPSULE PO SCH (07:44)
[2020-12-15] MEDS: dexAMETHasone 6 MG in SYRINGE 0 ML IV SCH (07:44)
[2020-12-15] MEDS: allopurinoL 100 MG TAB PO SCH (07:44)
[2020-12-15] MEDS: METOPROLOL TARTRATE 50 MG TAB PO SCH (07:45)
--- NOTE | 2020-12-15 08:00 | Hospitalist Progress Note ---
Date of Service December 15, 2020 Assessment & Plan (1) Acute respiratory failure: Patient is here with acute respiratory failure mostly hypoxemic in nature he is progress to high flow nasal cannula 35L 45% so has slight improvement from presentation Respiratory failure secondary to Covid pneumonia, procalcitonin is slightly up overall feel illness is covid pneumonia Pulmonary medicine has started levofloxacin and send a Legionella antigen. (2) COVID-19: Patient has Covid pneumonia extensive bilateral groundglass opacities and significant oxygen requirements. He will be initiated on remdesivir. I personally reviewed most recent research for multiple parties regarding remdesivir use given the patient's timing is now approximately 10 days. There seems to be no defined consensus even within our website or other reputable government based agencies, about whether to use or not to use. Following the infectious disease Society of [place] they found that using an antiviral was beneficial in reducing time to well but not reducing mortality. To this end I have chosen to use remdesivir in this patient. Patient will also be on dexamethasone 6 mg a day 12/15 CRP is > 10 will continue to discuss with pulmonary medicine for tocilizumab use this point time we are holding on the use (3) Hypertension: Continue metoprolol dosing (4) Psoriasis: (5) Hyponatremia: admission 125 now 128, not fluid restricting but not given ivf is corrrecting but will follow hyponatremia lens discussion for atypical pneumonia (6) DVT prophylaxis: Patient will be on Covid DVT prophylaxis 0.5/kg every 12 try melatonin for sleep aid to not sedate to reduce ventilation Admission and Anticipated Discharge Date Admission Date: December 14, 2020 Subjective Patient says he feels somewhat better he still markedly short of breath his biggest concern is insomnia. He was seen by critical care medicine started levofloxacin send Legionella antigen not yet pursued tocilizumab as they feel he may be too late into his illness Review of Systems Review of Systems: Mild distress and fatigue no headache, blurry or double vision no speech or swallowing issues no chest pain, pressure or palpitations Severe shortness of breath accessory muscle use Slight distention his abdomen nontender no diarrhea no dysuria, hematuria or frequency no focal joint pain or swelling no back pain, CVA tenderness or radicular pain Patient had a flare of his psoriasis of late no focal signs of weakness or numbness or altered sensation no complaints of anxiety or depression.. Physical Exam Physical Exam: The patient appeared to severe distress Vital signs as documented. Head exam is normocephalic atraumatic Neck is without JVD, thyromegaly, or carotid bruits. Course breath sounds bilaterally with decreased air movement Cardiac exam, Rhythm is tachycardic.. No murmurs, rubs or gallops. Abdominal exam reveals normal bowel sounds, soft distention a protuberance Extremities are nonedematous and both pedal pulses are present Neurologic exam is alert and oriented, no focal loss of strength or sensation Skin is lytic patches on his lower extremity and umbilicus Psychologically is without concerns for anxiety or depression Results & Data Results & Data ([facility]) Vital Signs (Past 12 Hours) Vital Signs Temp Pulse Pulse Pulse Resp BP BP 12/15/20 07:23 100.9 F H 93 H 23 170/93 H 12/15/20 07:14 114 H 18 12/15/20 04:11 99.1 F 97 H 24 170/90 H 12/15/20 03:37 95 H 15 12/15/20 00:13 98.6 F 95 H 24 174/94 H 12/14/20 23:06 98 H 25 H 12/14/20 22:30 94 H 12/14/20 22:10 93 H 12/14/20 21:55 99.3 F 94 H 22 176/99 H 12/14/20 21:31 90 32 H 12/14/20 21:30 94 H 32 H 162/100 H 12/14/20 21:20 91 H 28 H 12/14/20 21:10 90 34 H 12/14/20 21:01 90 33 H 12/14/20 21:00 89 33 H 162/101 H 12/14/20 20:50 90 29 H 12/14/20 20:40 90 34 H 12/14/20 20:31 92 H 33 H 12/14/20 20:30 90 33 H 149/87 H 12/14/20 20:20 91 H 28 H 12/14/20 20:10 90 26 H 12/14/20 20:01 92 H 30 H 12/14/20 20:00 94 H 34 H 178/102 H Pulse Ox 12/15/20 07:23 90 12/15/20 07:14 90 12/15/20 04:11 91 12/15/20 03:37 90 12/15/20 00:13 93 12/14/20 23:06 91 12/14/20 22:30 12/14/20 22:10 12/14/20 21:55 95 12/14/20 21:31 93 12/14/20 21:30 93 12/14/20 21:20 93 12/14/20 21:10 94 12/14/20 21:01 93 12/14/20 21:00 93 12/14/20 20:50 93 12/14/20 20:40 93 12/14/20 20:31 93 12/14/20 20:30 93 12/14/20 20:20 93 12/14/20 20:10 93 12/14/20 20:01 94 12/14/20 20:00 93 PG Care Time/CCT Total # of Minutes Spent Total Time Spent with Patient: Total time spent is greater than 50% in coordination of care (as documented) at patient's floor/unit and/or counseling patient: Coding Level of Care Code 23621 Subseq Hosp Care Lvl 3 Diagnoses Acute respiratory failure J96.00 COVID-19 U07.1 Hypertension I10 Psoriasis L40.9 Hyponatremia E87.1 DVT prophylaxis Z29.9
--- NOTE | 2020-12-15 11:57 | Pulmonology Progress Note ---
Date of Service December 15, 2020 Assessment & Plan (1) Respiratory failure with hypoxia: Impression: 65-year-old male admitted with COVID-19 pneumonia. His procalcitonin was elevated he has diffuse pulmonary infiltrates. He is received dexamethasone. He reports an adverse reaction to Humira in the past when he was treated for severe psoriasis so I do not think Tocilizumab would be a medication favorable for him at this point time. BNP is not been checked. Recommendations: 1. Continue dexamethasone 6 mg daily per protocol. 2. We will trend the patient's procalcitonin. Check Legionella urinary antigen and place the patient on Levaquin pending clinical response given his elevated p rocalcitonin level. 3. Check BNP level. Diuresis may be an option. 4. Will defer remdesivir and zinc to primary service. My opinion is that viral replication is likely not contributing to his symptoms currently and its unlikely that viral replication inhibitors will offer him a clinical benefit at this point time. I suspect he is more in the inflammatory phase of his viral pneumonia. Continue supportive care. 5. Should the patient's respiratory status worsen, trial of noninvasive posit michelle pressure ventilation may be beneficial. Chronicity: acute Qualified Code(s): J96.01 - Acute respiratory failure with hypoxia (2) Pneumonia due to 2019 novel coronavirus: Admission and Anticipated Discharge Date Admission Date: December 14, 2020 Subjective Patient seen and examined. Discussed with the overnight critical care [facility] and with the admitting hospitalist. The patient reports that he is doing reasonably well currently. He is occasionally coughing and expectorating some clear to occasionally blood-tinged phlegm. No chest pain or palpitations. No lower extremity edema. His oxygen requirement has decreased significantly since presentation. Review of Systems Review of Systems: All systems reviewed & are unremarkable except as noted in HPI & below Physical Exam Constitutional: WD/WN, vitals as above Neck: trachea midline, no thyromegaly Respiratory: normal respiratory effort; no respiratory distress and no labored breathing Auscultation: + crackles Cardiovascular: RRR, no murmur, no edema Gastrointestinal (Abdomen): normal bowel sounds, soft, nontender, no hepatosp lenomegaly Musculoskeletal: Extremities: extremities normal to inspection Skin: no rashes, warm and dry Neurologic: Nonfocal exam Lymphatic: no cervical lymphadenopathy Results & Data Results & Data ([facility]) Vital Signs (Past 12 Hours) Vital Signs Temp Pulse Pulse Pulse Resp BP Pulse Ox 12/15/20 11:14 86 18 90 12/15/20 11:02 36.8 C 90 24 165/83 H 89 L 12/15/20 09:28 107 H 12/15/20 07:23 38.3 C H 93 H 23 170/93 H 90 12/15/20 07:14 114 H 18 90 12/15/20 04:11 37.3 C 97 H 24 170/90 H 91 12/15/20 03:37 95 H 15 90 12/15/20 00:13 37.0 C 95 H 24 174/94 H 93 Laboratory Results 12/15/20 05:55 12/15/20 05:55 D-dimer 1780 CRP initially 9.5, today 10.5 Procalcitonin 1.77 Diagnostic Findings No new imaging PG Care Time/CCT Total # of Minutes Spent Total Time Spent with Patient: Total time spent is greater than 50% in coordination of care (as documented) at patient's floor/unit and/or counseling patient: Coding Level of Care Code 95373 Subseq Hosp Care Lvl 3 Diagnoses Respiratory failure with hypoxia J96.01 Chronicity: acute Pneumonia due to 2019 novel coronavirus U07.1; J12.82 Time Spent (min) 40
[2020-12-15] MEDS: levoFLOXacin/D5W 750 MG/150 ML BAG IV SCH (13:49)
[2020-12-15] MEDS: REMDESIVIR 100 MG in SODIUM CHLORIDE 0.9% 230 ML IV SCH (20:15)
[2020-12-15] MEDS ORDERED: MELATONIN 3 MG TAB PO ONE (21:00)
[2020-12-16] MEDS: dexAMETHasone 6 MG in SYRINGE 0 ML IV SCH (07:53)
[2020-12-16] MEDS: METOPROLOL TARTRATE 50 MG TAB PO SCH (07:53)
[2020-12-16] MEDS: allopurinoL 100 MG TAB PO SCH (07:53)
[2020-12-16] MEDS: ZINC SULFATE 220 MG CAPSULE PO SCH (07:53)
--- NOTE | 2020-12-16 09:08 | Hospitalist Progress Note ---
Date of Service December 16, 2020 Assessment & Plan (1) Acute respiratory failure: due to COVID 19 pneumonia stable on 15L wall high flow today, saturations 90-92%, no distress will have him lay prone as much as possible continue standard treatment for COVID 19 (2) COVID-19: Patient has Covid pneumonia with extensive bilateral ground glass opacities on imaging around day 10 of illness on presentation, he did receive a vaccine shot about a week ago continue dexamethasone 6mg IV daily, day 3 of 10 continue Remdesivir per protocol, day 3 of 5 continue Levaquin, day 3 of 7 supportive care, vitals stable, no fever anticipate him being here several days to a week (3) Hypertension: Continue metoprolol dosing, BP up slightly but stable (4) Psoriasis: (5) Hyponatremia: likely due to poor solute intake, did not eat much for 7 days repeat tomorrow (6) DVT prophylaxis: Patient will be on Covid DVT prophylaxis 0.5/kg every 12 try melatonin for sleep aid to not sedate to reduce ventilation Admission and Anticipated Discharge Date Admission Date: December 14, 2020 Subjective chart and labs reviewed stable on 15L wall high flow, he says he cannot tolerate the Vapotherm due to noise last night he slept with wall high flow plus oxymask he says he is feeling a little better + fever, + cough with frothy sputum, + dyspnea on exertion no chest pain, no diarrhea overall he feels a little better discussed importance of laying prone, he says he will comply as much as possible Review of Systems Review of Systems: All systems reviewed & are unremarkable except as noted in Subjective Physical Exam Constitutional: well developed, well nourished, + ill appearing and comfortable; no acute distress Neck: trachea midline, no thyromegaly Respiratory: + cough and + tachypneic; no respiratory distress Auscultation: lungs clear to auscultation bilaterally Cardiovascular: RRR, no murmur, no edema Gastrointestinal (Abdomen): normal bowel sounds, soft, nontender, no hepatosplenomegaly Musculoskeletal: no cyanosis or clubbing, extremities motor strength 5/5 Skin: no rashes, warm and dry Neurologic: patellar DTR's 2+ bilat, sensation intact and PERRL, EOMI, accommodation nl, no face palsy, no dysarthria Psychiatric: A+Ox3, euthymic affect Lymphatic: no cervical or axillary lymphadenopathy Results & Data Results & Data ([facility]) Vital Signs (Past 12 Hours) Vital Signs Temp Pulse Pulse Resp BP Pulse Ox 12/16/20 08:00 93 H 12/16/20 07:00 36.7 C 86 12 146/95 H 93 12/16/20 05:06 36.7 C 81 22 172/89 H 95 12/16/20 04:33 83 18 93 12/16/20 00:06 36.8 C 77 20 158/95 H 95 12/15/20 23:00 84 18 91 Medications Administered Current Inpatient Medications Acetaminophen (Acetaminophen 325 Mg Tab) 650 mg PO Q4H PRN PRN Reason: Pain or Fever Stop: 01/13/21 22:14 Last Admin: 12/15/20 07:43 Dose: 650 mg Documented by: Al Hydrox/Mg Hydrox/Simethicone (Aluminum/Magnesium Susp 30 Ml Udc) 15 ml PO Q4H PRN PRN Reason: Dyspepsia Stop: 01/13/21 22:14 Allopurinol (Allopurinol 100 Mg Tab) 100 mg PO DAILY [facility] Stop: 01/14/21 08:59 Last Admin: 12/16/20 07:53 Dose: 100 mg Documented by: Enoxaparin Sodium (Enoxaparin Inj 60 Mg/0.6 Ml Syr) 50 mg SQ Q12H [facility] Stop: 01/13/21 23:29 Last Admin: 12/15/20 23:00 Dose: 50 mg Documented by: Dexamethasone 6 mg/ Syringe 1.5 mls @ 1 mls/min IV DAILY [facility] Stop: 12/24/20 09:02 Last Admin: 12/16/20 07:53 Dose: 1 mls/min Documented by: Remdesivir 100 mg/ Sodium (Chloride) 250 mls @ 250 mls/hr IV Q24H [facility]; Protocol Stop: 12/18/20 20:59 Last Infusion: 12/15/20 21:15 Dose: Infused Documented by: Levofloxacin/Dextrose (Levaquin/D5w) 750 mg in 150 mls @ 100 mls/hr IV Q24H [facility]; Protocol Stop: 12/22/20 12:59 Last Infusion: 12/15/20 16:56 Dose: Infused Documented by: Metoprolol Tartrate (Metoprolol Tartrate 25 Mg Tab) 25 mg PO QPM [facility] Stop: 01/13/21 22:14 Last Admin: 12/15/20 20:16 Dose: 25 mg Documented by: Metoprolol Tartrate (Metoprolol Tartrate 50 Mg Tab) 50 mg PO QAM [facility] Stop: 01/14/21 08:59 Last Admin: 12/16/20 07:53 Dose: 50 mg Documented by: Morphine Sulfate (Morphine Sulfate 2 Mg/Ml Carp) 2 mg IV Q30M PRN PRN Reason: Chest Pain Stop: 12/28/20 22:14 Ondansetron HCl (Ondansetron Inj 2 Mg/Ml 2 Ml Vial) 4 mg IV Q6H PRN PRN Reason: Nausea Stop: 01/13/21 22:14 Polyethylene Glycol (Polyethylene (Miralax) 17 Gm Pack) 17 gm PO DAILY PRN PRN Reason: Constipation Stop: 01/13/21 22:14 Sodium Chloride (Sodium Chloride 0.9% 10ml Flush) 30 ml IV Q24H [facility] Stop: 12/19/20 00:31 Last Admin: 12/15/20 22:02 Dose: 30 ml Documented by: Zinc Sulfate (Zinc Sulfate 220 Mg Capsule) 220 mg PO DAILY [facility] Stop: 01/14/21 08:59 Last Admin: 12/16/20 07:53 Dose: 220 mg Documented by: PG Care Time/CCT Total # of Minutes Spent Total Time Spent: 32 Total Time Spent with Patient: Total time spent is greater than 50% in coordination of care (as documented) at patient's floor/unit and/or counseling patient: Coding Level of Care Code 69819 Subseq Hosp Care Lvl 3 Diagnoses Acute respiratory failure J96.00 COVID-19 U07.1 Hypertension I10 Psoriasis L40.9 Hyponatremia E87.1 DVT prophylaxis Z29.9
[2020-12-16] MEDS: levoFLOXacin/D5W 750 MG/150 ML BAG IV SCH (11:42)
[2020-12-16] MEDS: ENOXAPARIN INJ 60 MG/0.6 ML SYR SQ SCH ×2 (11:42→23:08)
[2020-12-16] MEDS: amLODIPine BESYLATE 5 MG TAB PO SCH (14:06)
--- NOTE | 2020-12-16 14:47 | Pulmonology Progress Note ---
Date of Service December 16, 2020 Assessment & Plan (1) Respiratory failure with hypoxia: Impression: 65-year-old male admitted with COVID-19 pneumonia. His procalcitonin was elevated he has diffuse pulmonary infiltrates. He is received dexamethasone. He reports an adverse reaction to Humira in the past when he was treated for severe psoriasis. Chest x-ray 12/14/2020 personally reviewed: Poor inspiratory effort, diffuse bilateral opacities appreciated, blunted right costophrenic angle. --Acute hypoxic respiratory failure Secondary to multilobar COVID-19 pneumonia COVID-19 PCR + 12/14/2020 CRP 9.5 --> 10.5 Continue with dexamethasone for total of 10 days Continue with remdesivir Awake proning will be beneficial. Continue with O2 supplementation to keep oxygen saturation between 88-92%. The patient is not able to tolerate nasal cannula recommend high flow and if he fails both then BiPAP with minimum setting 10/6. If there is any significant deterioration in the respiratory status might need ICU for intubation. --Morbid obesity with probable DANILO BiPAP nightly and as needed shortness of breath Plan: Given that the CRP is increasing. I will increase dexamethasone 10 mg on a daily basis. Hyperglycemia control as per the primary team Tocilizumab is tricky given that he had adverse reaction to Humira. Continue with incentive spirometry and guaifenesin. Keep the patient negative balance. Please note the above document was generated using voice recognition software. It may contain grammatical, syntax or spelling errors.Any formal questions or concerns about the content, text or information contained within the body of this dictation should be directly addressed to the provider for clarification. Chronicity: acute Qualified Code(s): J96.01 - Acute respiratory failure with hypoxia (2) Pneumonia due to 2019 novel coronavirus: Admission and Anticipated Discharge Date Admission Date: December 14, 2020 Subjective Patient seen and examined at bedside. No acute distress. No adverse events overnight. Patient was on 50 L nasal cannula at time of examination saturating 91-92% Stated that he is feeling better. Was not able to tolerate high flow overnight. Denies any chest pain. Is bringing up phlegm. Does complain of generalized lethargy. Appetite is getting better. Denies any diarrhea. No nausea or vomiting Review of Systems Review of Systems: All systems reviewed & are unremarkable except as noted in Subjective Physical Exam Physical Exam: Constitutional: No acute distress HEENT: EOMI, PERRLA Respiratory system: Decreased air entry bilaterally, no wheeze, no rhonchi, positive crackles bilaterally CVS: S1-S2 positive, no murmurs or gallops Abdomen: Soft, nontender, nondistended, positive bowel sounds x4 Extremities: +2 pulses bilaterally radialis/ dorsalis pedis, no cyanosis, no edema Neuro: Awake alert oriented x3 Psych: Normal mood and affect G/U: No Swenson Skin: no rashes, warm and dry Lymphatic: no cervical or axillary lymphadenopathy Results & Data Results & Data ([facility]) Vital Signs (Past 12 Hours) Vital Signs Temp Pulse Pulse Resp BP Pulse Ox 12/16/20 11:52 36.8 C 83 14 176/106 H 91 12/16/20 08:00 93 H 12/16/20 07:00 36.7 C 86 12 146/95 H 93 12/16/20 05:06 36.7 C 81 22 172/89 H 95 12/16/20 04:33 83 18 93 12/15/20 05:55 12/15/20 05:55 PG Care Time/CCT Total # of Minutes Spent Total Time Spent with Patient: Total time spent is greater than 50% in coordination of care (as documented) at patient's floor/unit and/or counseling patient: Coding Level of Care Code 92571 Subseq Hosp Care Lvl 3 Diagnoses Respiratory failure with hypoxia J96.01 Chronicity: acute Pneumonia due to 2019 novel coronavirus U07.1; J12.82
[2020-12-16] MEDS ORDERED: dexAMETHasone 4 MG in SYRINGE 0 ML IV STA (14:50)
[2020-12-16] MEDS: METOPROLOL TARTRATE 25 MG TAB PO SCH (20:16)
[2020-12-16] MEDS: REMDESIVIR 100 MG in SODIUM CHLORIDE 0.9% 230 ML IV SCH (20:16)
[2020-12-16] MEDS: SODIUM CHLORIDE 0.9% 10ML FLUSH IV SCH (21:20)
[2020-12-17 06:04] LABS: Hematocrit (blood only) 41.7 % (42-52); Hemoglobin 14.9 g/dL (14.0-18.0); Mean Corpuscular Hemoglobin 33.1 pg (25-34); Mean Corpuscular Hgb Conc 35.7 g/dL (32-36); Mean Corpuscular Volume 92.7 fL (80-100); Mean Platelet Volume 10.7 fL (7.4-10.4); Platelet Count 308 K/uL (130-400); RDW Coefficient of Variation 12.8 % (11.5-14.5); RDW Standard Deviation 42.9 fL (36.4-46.3); White Blood Count 10.52 K/uL (4.8-10.8)
[2020-12-17 06:22] LABS: Creatinine Clr Calc Pharmacy 98.6 ml/min; Est GFR (African American) 100.9 ml/min; Est GFR (Non-African American) 87.1 ml/min
[2020-12-17] MEDS: dexAMETHasone 10 MG in SYRINGE 0 ML IV SCH (08:08)
[2020-12-17] MEDS: amLODIPine BESYLATE 5 MG TAB PO SCH (08:09)
[2020-12-17] MEDS: allopurinoL 100 MG TAB PO SCH (08:09)
[2020-12-17] MEDS: ZINC SULFATE 220 MG CAPSULE PO SCH (08:09)
[2020-12-17] MEDS: METOPROLOL TARTRATE 50 MG TAB PO SCH (08:09)
--- NOTE | 2020-12-17 09:11 | Pulmonology Progress Note ---
Date of Service December 17, 2020 Assessment & Plan (1) Respiratory failure with hypoxia: Impression: 65-year-old male admitted with COVID-19 pneumonia. His procalcitonin was elevated he has diffuse pulmonary infiltrates. He is received dexamethasone. He reports an adverse reaction to Humira in the past when he was treated for severe psoriasis. Chest x-ray 12/14/2020 personally reviewed: Poor inspiratory effort, diffuse bilateral opacities appreciated, blunted right costophrenic angle. --Acute hypoxic respiratory failure Secondary to multilobar COVID-19 pneumonia COVID-19 PCR + 12/14/2020 CRP 9.5 --> 10.5 Continue with dexamethasone for total of 10 days Continue with remdesivir Awake proning will be beneficial. Continue with O2 supplementation to keep oxygen saturation between 88-92%. The patient is not able to tolerate nasal cannula recommend high flow and if he fails both then BiPAP with minimum setting 10/6. If there is any significant deterioration in the respiratory status might need ICU for intubation. --Morbid obesity with probable DANILO BiPAP nightly and as needed shortness of breath Plan: Follow-up CRP from today. Continue with dexamethasone 10 mg. Continue with incentive spirometry and guaifenesin. Keep the patient negative balance. Case was discussed with BELGICA Gama Please note the above document was generated using voice recognition software. It may contain grammatical, syntax or spelling errors.Any formal questions or concerns about the content, text or information contained within the body of this dictation should be directly addressed to the provider for clarification. Chronicity: acute Qualified Code(s): J96.01 - Acute respiratory failure with hypoxia (2) Pneumonia due to 2019 novel coronavirus: Admission and Anticipated Discharge Date Admission Date: December 14, 2020 Subjective Patient seen from the glass window. Not in any acute distress. Saturation 92-93%. He has been on 11 L nasal cannula. Has been afebrile. Review of Systems Review of Systems: Other Physical Exam Physical Exam: Patient not examined due to coronavirus restrictions and attempts to minimize exposure to staff and consider PPE. Please refer to the hospitalist exam for complete details. Results & Data Results & Data ([facility]) Vital Signs (Past 12 Hours) Vital Signs Temp Pulse Pulse Resp BP BP Pulse Ox 12/17/20 08:13 36.8 C 93 H 14 173/87 H 92 12/17/20 04:27 36.3 C L 87 18 164/90 H 91 12/16/20 23:11 36.5 C 84 20 164/100 H 92 12/16/20 22:32 83 12/17/20 05:30 12/17/20 05:30 PG Care Time/CCT Total # of Minutes Spent Total Time Spent with Patient: Total time spent is greater than 50% in coordination of care (as documented) at patient's floor/unit and/or counseling patient: Coding Level of Care Code 05108 Subseq Hosp Care Lvl 2 Diagnoses Respiratory failure with hypoxia J96.01 Chronicity: acute Pneumonia due to 2019 novel coronavirus U07.1; J12.82
--- NOTE | 2020-12-17 11:10 | Hospitalist Progress Note ---
Date of Service December 17, 2020 Assessment & Plan (1) Acute respiratory failure: due to COVID 19 pneumonia stable on 13L wall high flow today, saturations >90%, no distress will have him lay prone or in left lateral position continue standard treatment for COVID 19 anticipate him being here the rest of the week (2) COVID-19: Patient has Covid pneumonia with extensive bilateral ground glass opacities on imaging around day 10 of illness on presentation, he did receive a vaccine shot about a week ago continue dexamethasone 6mg IV daily, day 4 of 10 continue Remdesivir per protocol, day 4 of 5 continue Levaquin, day 4 of 7 supportive care, vitals stable, no fever anticipate him being here several days to a week CRP down to 3.3 from 10 which is a good sign (3) Hypertension: Continue metoprolol BP quite elevated, added Norvasc 5mg daily follow for response (4) Psoriasis: (5) Hyponatremia: likely due to poor solute intake, did not eat much for 7 days eating much better now (6) DVT prophylaxis: Patient will be on Covid DVT prophylaxis 0.5/kg every 12 try melatonin for sleep aid to not sedate to reduce ventilation Admission and Anticipated Discharge Date Admission Date: December 14, 2020 Subjective chart/labs reviewed, Cr stable, CRP down to 3 from [address] Johnson, appreciate his input down to 13L from 15L NC laying on his left side, he says he feels better, he was finally able to get some sleep last night and this morning, had them turn up the heat he is eating well, no nausea, no diarrhea still with intermittent cough but barely any sputum no chest pain, no fever Review of Systems Review of Systems: All systems reviewed & are unremarkable except as noted in Subjective Constitutional: + fatigue; no fever and no weakness Respiratory: + cough, + dyspnea, + dyspnea on exertion and + sputum production Cardiovascular: no chest pain and no edema Gastrointestinal: no abdominal pain, no nausea, no vomiting, no constipation and no diarrhea/loose stools Physical Exam Constitutional: well developed, well nourished, + ill appearing and comfortable; no acute distress Neck: trachea midline, no thyromegaly Respiratory: normal respiratory effort and + cough; no respiratory distress Auscultation: lungs clear to auscultation bilaterally Cardiovascular: RRR, no murmur, no edema Gastrointestinal (Abdomen): normal bowel sounds, soft, nontender, no hepatosplenomegaly Musculoskeletal: no cyanosis or clubbing, extremities motor strength 5/5 Skin: no rashes, warm and dry Neurologic: patellar DTR's 2+ bilat, sensation intact and PERRL, EOMI, accommodation nl, no face palsy, no dysarthria Psychiatric: A+Ox3, euthymic affect Lymphatic: no cervical or axillary lymphadenopathy Results & Data Results & Data ([facility]) Vital Signs (Past 12 Hours) Vital Signs Temp Pulse Pulse Resp BP BP Pulse Ox 12/17/20 08:13 36.8 C 93 H 14 173/87 H 92 12/17/20 08:00 83 12/17/20 04:27 36.3 C L 87 18 164/90 H 91 12/16/20 23:11 36.5 C 84 20 164/100 H 92 Laboratory Results Laboratory Results - last 24 hr 12/17/20 12/17/20 12/17/20 05:30 05:30 05:30 WBC 10.52 RBC 4.50 L Hgb 14.9 Hct 41.7 L MCV 92.7 MCH 33.1 MCHC 35.7 RDW Std Deviation 42.9 RDW Coeff of [place] 12.8 Plt Count 308 D MPV 10.7 H Creatinine 0.93 Est Cr Clr Drug Dosing 98.6 Est GFR ( Amer) 100.9 Est GFR (Non-Af Amer) 87.1 C-Reactive Protein 3.30 H Medications Administered Current Inpatient Medications Acetaminophen (Acetaminophen 325 Mg Tab) 650 mg PO Q4H PRN PRN Reason: Pain or Fever Stop: 01/13/21 22:14 Last Admin: 12/15/20 07:43 Dose: 650 mg Documented by: Al Hydrox/Mg Hydrox/Simethicone (Aluminum/Magnesium Susp 30 Ml Udc) 15 ml PO Q4H PRN PRN Reason: Dyspepsia Stop: 01/13/21 22:14 Allopurinol (Allopurinol 100 Mg Tab) 100 mg PO DAILY [facility] Stop: 01/14/21 08:59 Last Admin: 12/17/20 08:09 Dose: 100 mg Documented by: Amlodipine Besylate (Amlodipine Besylate 5 Mg Tab) 5 mg PO QAM [facility] Stop: 01/15/21 12:14 Last Admin: 12/17/20 08:09 Dose: 5 mg Documented by: Enoxaparin Sodium (Enoxaparin Inj 60 Mg/0.6 Ml Syr) 50 mg SQ Q12H [facility] Stop: 01/13/21 23:29 Last Admin: 12/16/20 23:08 Dose: 50 mg Documented by: Remdesivir 100 mg/ Sodium (Chloride) 250 mls @ 250 mls/hr IV Q24H [facility]; Protocol Stop: 12/18/20 20:59 Last Infusion: 12/16/20 21:20 Dose: Infused Documented by: Levofloxacin/Dextrose (Levaquin/D5w) 750 mg in 150 mls @ 100 mls/hr IV Q24H [facility]; Protocol Stop: 12/22/20 12:59 Last Infusion: 12/16/20 13:12 Dose: Infused Documented by: Dexamethasone 10 mg/ Syringe 2.5 mls @ 1 mls/min IV DAILY [facility]; Protocol Stop: 12/24/20 08:59 Last Admin: 12/17/20 08:08 Dose: 1 mls/min Documented by: Metoprolol Tartrate (Metoprolol Tartrate 25 Mg Tab) 25 mg PO QPM [facility] Stop: 01/13/21 22:14 Last Admin: 12/16/20 20:16 Dose: 25 mg Documented by: Metoprolol Tartrate (Metoprolol Tartrate 50 Mg Tab) 50 mg PO QAM [facility] Stop: 01/14/21 08:59 Last Admin: 12/17/20 08:09 Dose: 50 mg Documented by: Morphine Sulfate (Morphine Sulfate 2 Mg/Ml Carp) 2 mg IV Q30M PRN PRN Reason: Chest Pain Stop: 12/28/20 22:14 Ondansetron HCl (Ondansetron Inj 2 Mg/Ml 2 Ml Vial) 4 mg IV Q6H PRN PRN Reason: Nausea Stop: 01/13/21 22:14 Polyethylene Glycol (Polyethylene (Miralax) 17 Gm Pack) 17 gm PO DAILY PRN PRN Reason: Constipation Stop: 01/13/21 22:14 Sodium Chloride (Sodium Chloride 0.9% 10ml Flush) 30 ml IV Q24H [facility] Stop: 12/19/20 00:31 Last Admin: 12/16/20 21:20 Dose: 30 ml Documented by: Zinc Sulfate (Zinc Sulfate 220 Mg Capsule) 220 mg PO DAILY [facility] Stop: 01/14/21 08:59 Last Admin: 12/17/20 08:09 Dose: 220 mg Documented by: PG Care Time/CCT Total # of Minutes Spent Total Time Spent with Patient: Total time spent is greater than 50% in coordination of care (as documented) at patient's floor/unit and/or counseling patient: Coding Level of Care Code 65904 Subseq Hosp Care Lvl 3 Diagnoses Acute respiratory failure J96.00 COVID-19 U07.1 Hypertension I10 Psoriasis L40.9 Hyponatremia E87.1 DVT prophylaxis Z29.9
[2020-12-17] MEDS: ENOXAPARIN INJ 60 MG/0.6 ML SYR SQ SCH ×2 (12:09→23:02)
[2020-12-17] MEDS ORDERED: amLODIPine BESYLATE 5 MG TAB PO ONE (12:12)
[2020-12-17] MEDS: levoFLOXacin/D5W 750 MG/150 ML BAG IV SCH (12:14)
[2020-12-17] MEDS: hydrALAZINE HCL 20 MG/ML VIAL IV PRN ×2 (17:30→23:05)
[2020-12-17] MEDS: REMDESIVIR 100 MG in SODIUM CHLORIDE 0.9% 230 ML IV SCH (20:43)
[2020-12-17] MEDS: METOPROLOL TARTRATE 25 MG TAB PO SCH (20:51)
[2020-12-17] MEDS: SODIUM CHLORIDE 0.9% 10ML FLUSH IV SCH (21:45)
[2020-12-18] MEDS: MELATONIN 3 MG TAB PO PRN (00:03)
[2020-12-18] MEDS: ZINC SULFATE 220 MG CAPSULE PO SCH (07:59)
[2020-12-18] MEDS: allopurinoL 100 MG TAB PO SCH (07:59)
[2020-12-18] MEDS: METOPROLOL TARTRATE 50 MG TAB PO SCH (07:59)
[2020-12-18] MEDS: amLODIPine BESYLATE 5 MG TAB PO SCH (07:59)
[2020-12-18] MEDS: dexAMETHasone 10 MG in SYRINGE 0 ML IV SCH (08:22)
--- NOTE | 2020-12-18 08:33 | Pulmonology Progress Note ---
Date of Service December 18, 2020 Assessment & Plan (1) Respiratory failure with hypoxia: Impression: 65-year-old male admitted with COVID-19 pneumonia. His procalcitonin was elevated he has diffuse pulmonary infiltrates. He is received dexamethasone. He reports an adverse reaction to Humira in the past when he was treated for severe psoriasis. Chest x-ray 12/14/2020 personally reviewed: Poor inspiratory effort, diffuse bilateral opacities appreciated, blunted right costophrenic angle. --Acute hypoxic respiratory failure Secondary to multilobar COVID-19 pneumonia COVID-19 PCR + 12/14/2020 CRP 9.5 --> 10.5 --> 3.3 Continue with dexamethasone for total of 10 days Continue with remdesivir Awake proning will be beneficial. Continue with O2 supplementation to keep oxygen saturation between 88-92%. The patient is not able to tolerate nasal cannula recommend high flow and if he fails both then BiPAP with minimum setting 10/6. If there is any significant deterioration in the respiratory status might need ICU for intubation. --Morbid obesity with probable DANILO BiPAP nightly and as needed shortness of breath Plan: CRP trending down. Patient is clinically stable from pulmonary perspective. Continue with aggressive to try to titrate down O2 to keep saturation between 88-92% Continue with awake proning Complete the course of antibiotics for total of 7 days. Continue with incentive spirometry and guaifenesin. Keep the patient negative balance. Case was discussed with RN and Dr Taveras Please note the above document was generated using voice recognition software. It may contain grammatical, syntax or spelling errors.Any formal questions or concerns about the content, text or information contained within the body of this dictation should be directly addressed to the provider for clarification. Chronicity: acute Qualified Code(s): J96.01 - Acute respiratory failure with hypoxia (2) Pneumonia due to 2019 novel coronavirus: Admission and Anticipated Discharge Date Admission Date: December 14, 2020 Subjective Patient was seen from the glass window of the door. He was not in any acute distress. Saturation was 93%. Case was discussed with RN. Review of Systems Review of Systems: Other Physical Exam Physical Exam: Patient not examined due to coronavirus restrictions and attempts to minimize exposure to staff and consider PPE. Please refer to the hospitalist exam for complete details. Results & Data Results & Data ([facility]) Vital Signs (Past 12 Hours) Vital Signs Temp Pulse Resp BP BP Pulse Ox 12/18/20 08:00 36.6 C 90 22 159/107 H 87 L 12/18/20 03:58 37.0 C 91 H 19 164/78 H 93 12/18/20 00:03 36.5 C 92 H 20 163/71 H 92 12/17/20 23:04 165/100 H 12/17/20 20:52 173/94 H 12/17/20 05:30 12/17/20 05:30 PG Care Time/CCT Total # of Minutes Spent Total Time Spent with Patient: Total time spent is greater than 50% in coordination of care (as documented) at patient's floor/unit and/or counseling patient: Coding Level of Care Code 43577 Subseq Hosp Care Lvl 2 Diagnoses Respiratory failure with hypoxia J96.01 Chronicity: acute Pneumonia due to 2019 novel coronavirus U07.1; J12.82
[2020-12-18] MEDS: ENOXAPARIN INJ 60 MG/0.6 ML SYR SQ SCH ×2 (11:46→23:18)
--- NOTE | 2020-12-18 11:49 | Hospitalist Progress Note ---
Date of Service December 18, 2020 Assessment & Plan (1) Acute respiratory failure: due to COVID 19 pneumonia stable on 13L wall high flow today, saturations >90%, no distress will have him lay prone or in left lateral position continue standard treatment for COVID 19 anticipate him being here through the weekend (2) COVID-19: Patient has Covid pneumonia with extensive bilateral ground glass opacities on imaging around day 10 of illness on presentation, he did receive a vaccine shot about a week ago continue dexamethasone 10mg IV daily, day 5 of 10 continue Remdesivir per protocol, day 5 of 5 continue Levaquin, day 5 of 7 supportive care, vitals stable, no fever anticipate him being here several days to a week CRP down to 3.3 from 10 which is a good sign will repeat labs tomorrow (3) Hypertension: Continue metoprolol BP quite elevated, added Norvasc 5mg daily then increased it to 10mg daily Hydralazine 10mg IV q6 PRN for resistant hypertension (4) Psoriasis: (5) Hyponatremia: likely due to poor solute intake, did not eat much for 7 days eating much better now check BMP tomorrow (6) DVT prophylaxis: Patient will be on Covid DVT prophylaxis 0.5/kg every 12 try melatonin for sleep aid to not sedate to reduce ventilation Admission and Anticipated Discharge Date Admission Date: December 14, 2020 Subjective patient feels about the same as yesterday, still on 13L RN tried him on 11L and he dropped to 83% he is eating well, sleeps a few hours at a time he desaturates and gets very short of breath with minimal activity, even standing up to use the urinal, takes minutes to recover no labs today had a BM this morning discussed with Dr. Johnson, he recommends continuing current treatment, will follow peripherally Review of Systems 2 Review of Systems: All systems reviewed & are unremarkable except as noted in Subjective Respiratory: + cough, + dyspnea and + dyspnea on exertion Cardiovascular: no chest pain and no edema Gastrointestinal: no abdominal pain, no nausea, no vomiting, no constipation and no diarrhea/loose stools Physical Exam Constitutional: well developed, well nourished, + ill appearing and comfortable; no acute distress Neck: trachea midline, no thyromegaly Respiratory: normal respiratory effort and + cough; no respiratory distress Auscultation: lungs clear to auscultation bilaterally Cardiovascular: RRR, no murmur, no edema Gastrointestinal (Abdomen): normal bowel sounds, soft, nontender, no hepatosplenomegaly Musculoskeletal: no cyanosis or clubbing, extremities motor strength 5/5 Skin: no rashes, warm and dry Neurologic: patellar DTR's 2+ bilat, sensation intact and PERRL, EOMI, accommodation nl, no face palsy, no dysarthria Psychiatric: A+Ox3, euthymic affect Lymphatic: no cervical or axillary lymphadenopathy Results & Data Results & Data ([facility]) Vital Signs (Past 12 Hours) Vital Signs Temp Pulse Pulse Resp BP BP Pulse Ox 12/18/20 08:00 36.6 C 87 90 22 159/107 H 87 L 12/18/20 03:58 37.0 C 91 H 19 164/78 H 93 12/18/20 00:03 36.5 C 92 H 20 163/71 H 92 Medications Administered Current Inpatient Medications Acetaminophen (Acetaminophen 325 Mg Tab) 650 mg PO Q4H PRN PRN Reason: Pain or Fever Stop: 01/13/21 22:14 Last Admin: 12/15/20 07:43 Dose: 650 mg Documented by: Al Hydrox/Mg Hydrox/Simethicone (Aluminum/Magnesium Susp 30 Ml Udc) 15 ml PO Q4H PRN PRN Reason: Dyspepsia Stop: 01/13/21 22:14 Allopurinol (Allopurinol 100 Mg Tab) 100 mg PO DAILY [facility] Stop: 01/14/21 08:59 Last Admin: 12/18/20 07:59 Dose: 100 mg Documented by: Amlodipine Besylate (Amlodipine Besylate 5 Mg Tab) 10 mg PO QAM [facility] Stop: 01/17/21 08:59 Last Admin: 12/18/20 07:59 Dose: 10 mg Documented by: Enoxaparin Sodium (Enoxaparin Inj 60 Mg/0.6 Ml Syr) 50 mg SQ Q12H [facility] Stop: 01/13/21 23:29 Last Admin: 12/18/20 11:46 Dose: 50 mg Documented by: Hydralazine HCl (Hydralazine Hcl 20 Mg/Ml Vial) 10 mg IV Q6 PRN PRN Reason: Blood Pressure - High Stop: 01/16/21 16:53 Last Admin: 12/17/20 23:05 Dose: 10 mg Documented by: Remdesivir 100 mg/ Sodium (Chloride) 250 mls @ 250 mls/hr IV Q24H [facility]; Protocol Stop: 12/18/20 20:59 Last Infusion: 12/17/20 21:45 Dose: Infused Documented by: Levofloxacin/Dextrose (Levaquin/D5w) 750 mg in 150 mls @ 100 mls/hr IV Q24H [facility]; Protocol Stop: 12/22/20 12:59 Last Infusion: 12/17/20 13:44 Dose: Infused Documented by: Dexamethasone 10 mg/ Syringe 2.5 mls @ 1 mls/min IV DAILY [facility]; Protocol Stop: 12/24/20 08:59 Last Admin: 12/18/20 08:22 Dose: 1 mls/min Documented by: Melatonin (Melatonin 3 Mg Tab) 3 mg PO HS PRN PRN Reason: Sleep Stop: 01/16/21 23:34 Last Admin: 12/18/20 00:03 Dose: 3 mg Documented by: Metoprolol Tartrate (Metoprolol Tartrate 25 Mg Tab) 25 mg PO QPM [facility] Stop: 01/13/21 22:14 Last Admin: 12/17/20 20:51 Dose: 25 mg Documented by: Metoprolol Tartrate (Metoprolol Tartrate 50 Mg Tab) 50 mg PO QAM [facility] Stop: 01/14/21 08:59 Last Admin: 12/18/20 07:59 Dose: 50 mg Documented by: Morphine Sulfate (Morphine Sulfate 2 Mg/Ml Carp) 2 mg IV Q30M PRN PRN Reason: Chest Pain Stop: 12/28/20 22:14 Ondansetron HCl (Ondansetron Inj 2 Mg/Ml 2 Ml Vial) 4 mg IV Q6H PRN PRN Reason: Nausea Stop: 01/13/21 22:14 Polyethylene Glycol (Polyethylene (Miralax) 17 Gm Pack) 17 gm PO DAILY PRN PRN Reason: Constipation Stop: 01/13/21 22:14 Sodium Chloride (Sodium Chloride 0.9% 10ml Flush) 30 ml IV Q24H [facility] Stop: 12/19/20 00:31 Last Admin: 12/17/20 21:45 Dose: 30 ml Documented by: Zinc Sulfate (Zinc Sulfate 220 Mg Capsule) 220 mg PO DAILY [facility] Stop: 01/14/21 08:59 Last Admin: 12/18/20 07:59 Dose: 220 mg Documented by: PG Care Time/CCT Total # of Minutes Spent Total Time Spent with Patient: Total time spent is greater than 50% in coordination of care (as documented) at patient's floor/unit and/or counseling patient: Coding Level of Care Code 89697 Subseq Hosp Care Lvl 3 Diagnoses Acute respiratory failure J96.00 COVID-19 U07.1 Hypertension I10 Psoriasis L40.9 Hyponatremia E87.1 DVT prophylaxis Z29.9
[2020-12-18] MEDS: levoFLOXacin/D5W 750 MG/150 ML BAG IV SCH (13:03)
[2020-12-18] MEDS: REMDESIVIR 100 MG in SODIUM CHLORIDE 0.9% 230 ML IV SCH (19:59)
[2020-12-18] MEDS: METOPROLOL TARTRATE 25 MG TAB PO SCH (20:00)
[2020-12-18] MEDS: SODIUM CHLORIDE 0.9% 10ML FLUSH IV SCH (21:48)
[2020-12-19] MEDS: MELATONIN 3 MG TAB PO PRN (01:20)
[2020-12-19 07:56] LABS: Hematocrit (blood only) 42.9 % (42-52); Hemoglobin 15.3 g/dL (14.0-18.0); Mean Corpuscular Hgb Conc 35.7 g/dL (32-36); Mean Corpuscular Volume 95.3 fL (80-100); Mean Platelet Volume 10.2 fL (7.4-10.4); Platelet Count 533 K/uL (130-400); RDW Standard Deviation 44.9 fL (36.4-46.3); White Blood Count 14.85 K/uL (4.8-10.8)
[2020-12-19 08:02] LABS: BUN Creatinine Ratio 24.8 (10-20); C Reactive Protein 1.84 mg/dl (0-0.29); Calcium 8.8 mg/dl (8.5-10.1); Est GFR (Non-African American) 90.6 ml/min; Magnesium 2.4 mg/dl (1.8-2.4)
[2020-12-19] MEDS: amLODIPine BESYLATE 5 MG TAB PO SCH (08:04)
[2020-12-19] MEDS: dexAMETHasone 10 MG in SYRINGE 0 ML IV SCH (08:05)
[2020-12-19] MEDS: allopurinoL 100 MG TAB PO SCH (08:05)
[2020-12-19] MEDS: ZINC SULFATE 220 MG CAPSULE PO SCH (08:05)
[2020-12-19] MEDS: METOPROLOL TARTRATE 50 MG TAB PO SCH (08:59)
[2020-12-19] MEDS: ENOXAPARIN INJ 60 MG/0.6 ML SYR SQ SCH ×2 (11:41→22:22)
[2020-12-19] MEDS: levoFLOXacin/D5W 750 MG/150 ML BAG IV SCH (13:36)
--- NOTE | 2020-12-19 14:12 | Hospitalist Progress Note ---
Date of Service December 19, 2020 Assessment & Plan (1) Acute respiratory failure: due to COVID 19 pneumonia remains stable on 13L wall high flow, has been at the same oxygen requirement for 4 days laying in left lateral position all the time continue standard treatment for COVID 19 anticipate him being here through the weekend and middle of next week will give Lasix 20mg IV in the morning to try to diurese him and lower oxygen requirements (2) COVID-19: Patient has Covid pneumonia with extensive bilateral ground glass opacities on imaging around day 10 of illness on presentation, he did receive a vaccine shot about a week ago continue dexamethasone 10mg IV daily, day 6 of 10 completed 5 days of Remdesivir continue Levaquin, day 6 of 7 give Lasix 20mg IV on 12/20 to try to dry out lungs and improve oxygen levels supportive care, vitals stable, no fever anticipate him being here several days to a week CRP down to 1 from 10 which is a good sign CXR on 12/19 with infiltrates but overall they look improved compared to 12/14 (3) Hypertension: Continue metoprolol BP quite elevated, added Norvasc 5mg daily then increased it to 10mg daily Hydralazine 10mg IV q6 PRN for resistant hypertension (4) Psoriasis: (5) Hyponatremia: likely due to poor solute intake, did not eat much for 7 days eating much better now Na is now normal (6) DVT prophylaxis: Patient will be on Covid DVT prophylaxis 0.5/kg every 12 try melatonin for sleep aid to not sedate to reduce ventilation Admission and Anticipated Discharge Date Admission Date: December 14, 2020 Subjective patient laying on his left side, breathing comfortably still with dyspnea on exertion, just minimal activity he is eating well, no nausea, he had a BM today, he is making urine discussed trying Lasix today, he says he is too fatigued to get up and down, willing to try it tomorrow got portable CXR, shows improvement in infiltrates compared to 12/14 Review of Systems Review of Systems: All systems reviewed & are unremarkable except as noted in Subjective Constitutional: + fatigue; no fever, no chills, no sweats and no weakness Respiratory: + cough, + dyspnea and + dyspnea on exertion; no sputum production Cardiovascular: no chest pain Gastrointestinal: no abdominal pain, no nausea, no vomiting, no constipation and no diarrhea/loose stools Physical Exam Constitutional: well developed, well nourished, + ill appearing and comfortable; no acute distress Neck: trachea midline, no thyromegaly Respiratory: normal respiratory effort and + cough; no respiratory distress Auscultation: lungs clear to auscultation bilaterally Cardiovascular: RRR, no murmur, no edema Gastrointestinal (Abdomen): normal bowel sounds, soft, nontender, no hepatosplenomegaly Musculoskeletal: no cyanosis or clubbing, extremities motor strength 5/5 Skin: no rashes, warm and dry Neurologic: patellar DTR's 2+ bilat, sensation intact and PERRL, EOMI, accommodation nl, no face palsy, no dysarthria Psychiatric: A+Ox3, euthymic affect Lymphatic: no cervical or axillary lymphadenopathy Results & Data Results & Data ([facility]) Vital Signs (Past 12 Hours) Vital Signs Temp Pulse Pulse Pulse Resp BP Pulse Ox 12/19/20 11:41 36.3 C L 83 18 159/88 H 88 L 12/19/20 08:01 36.6 C 83 18 159/96 H 90 12/19/20 07:00 78 12/19/20 04:13 36.4 C L 78 24 152/91 H 91 Laboratory Results Laboratory Results - last 24 hr 12/19/20 12/19/20 07:01 07:01 WBC 14.85 H RBC 4.50 L Hgb 15.3 Hct 42.9 MCV 95.3 MCH 34.0 MCHC 35.7 RDW Std Deviation 44.9 RDW Coeff of [place] 13.0 Plt Count 533 H MPV 10.2 Sodium 131 L Potassium 4.0 Chloride 98 Carbon Dioxide 30 Anion Gap 3.0 BUN 22 H Creatinine 0.90 Est Cr Clr Drug Dosing 102.0 Est GFR ( Amer) 105.0 Est GFR (Non-Af Amer) 90.6 BUN/Creatinine Ratio 24.8 H Glucose 123 H Calcium 8.8 Magnesium 2.4 C-Reactive Protein 1.84 H Medications Administered Current Inpatient Medications Acetaminophen (Acetaminophen 325 Mg Tab) 650 mg PO Q4H PRN PRN Reason: Pain or Fever Stop: 01/13/21 22:14 Last Admin: 12/15/20 07:43 Dose: 650 mg Documented by: Al Hydrox/Mg Hydrox/Simethicone (Aluminum/Magnesium Susp 30 Ml Udc) 15 ml PO Q4H PRN PRN Reason: Dyspepsia Stop: 01/13/21 22:14 Allopurinol (Allopurinol 100 Mg Tab) 100 mg PO DAILY [facility] Stop: 01/14/21 08:59 Last Admin: 12/19/20 08:05 Dose: 100 mg Documented by: Amlodipine Besylate (Amlodipine Besylate 5 Mg Tab) 10 mg PO QAM [facility] Stop: 01/17/21 08:59 Last Admin: 12/19/20 08:04 Dose: 10 mg Documented by: Enoxaparin Sodium (Enoxaparin Inj 60 Mg/0.6 Ml Syr) 50 mg SQ Q12H [facility] Stop: 01/13/21 23:29 Last Admin: 12/19/20 11:41 Dose: 50 mg Documented by: Hydralazine HCl (Hydralazine Hcl 20 Mg/Ml Vial) 10 mg IV Q6 PRN PRN Reason: Blood Pressure - High Stop: 01/16/21 16:53 Last Admin: 12/17/20 23:05 Dose: 10 mg Documented by: Levofloxacin/Dextrose (Levaquin/D5w) 750 mg in 150 mls @ 100 mls/hr IV Q24H [facility]; Protocol Stop: 12/22/20 12:59 Last Admin: 12/19/20 13:36 Dose: 100 mls/hr Documented by: Dexamethasone 10 mg/ Syringe 2.5 mls @ 1 mls/min IV DAILY [facility]; Protocol Stop: 12/24/20 08:59 Last Admin: 12/19/20 08:05 Dose: 1 mls/min Documented by: Furosemide 20 mg/ Syringe 2 mls @ 4 mls/min IV QAM [facility] Stop: 01/19/21 08:59 Melatonin (Melatonin 3 Mg Tab) 3 mg PO HS PRN PRN Reason: Sleep Stop: 01/16/21 23:34 Last Admin: 12/19/20 01:20 Dose: 3 mg Documented by: Metoprolol Tartrate (Metoprolol Tartrate 25 Mg Tab) 25 mg PO QPM [facility] Stop: 01/13/21 22:14 Last Admin: 12/18/20 20:00 Dose: 25 mg Documented by: Metoprolol Tartrate (Metoprolol Tartrate 50 Mg Tab) 50 mg PO QAM [facility] Stop: 01/14/21 08:59 Last Admin: 12/19/20 08:59 Dose: 50 mg Documented by: Morphine Sulfate (Morphine Sulfate 2 Mg/Ml Carp) 2 mg IV Q30M PRN PRN Reason: Chest Pain Stop: 12/28/20 22:14 Ondansetron HCl (Ondansetron Inj 2 Mg/Ml 2 Ml Vial) 4 mg IV Q6H PRN PRN Reason: Nausea Stop: 01/13/21 22:14 Polyethylene Glycol (Polyethylene (Miralax) 17 Gm Pack) 17 gm PO DAILY PRN PRN Reason: Constipation Stop: 01/13/21 22:14 Zinc Sulfate (Zinc Sulfate 220 Mg Capsule) 220 mg PO DAILY [facility] Stop: 01/14/21 08:59 Last Admin: 12/19/20 08:05 Dose: 220 mg Documented by: PG Care Time/CCT Total # of Minutes Spent Total Time Spent with Patient: Total time spent is greater than 50% in coordination of care (as documented) at patient's floor/unit and/or counseling patient: Coding Level of Care Code 94737 Subseq Hosp Care Lvl 3 Diagnoses Acute respiratory failure J96.00 COVID-19 U07.1 Hypertension I10 Psoriasis L40.9 Hyponatremia E87.1 DVT prophylaxis Z29.9
[2020-12-19] MEDS ORDERED: FUROSEMIDE 20 MG in SYRINGE 0 ML IV ONE (14:15)
--- NOTE | 2020-12-19 14:31 | XRay Report ---
XR chest 1V portable CLINICAL HISTORY: worsening Hypoxia, COVID COMPARISON STUDY: 12/14/2020 FINDINGS: The heart remains enlarged. There is aortic tortuosity/ectasia. There is mild widening of t he mediastinum likely secondary to a tortuous/ectatic ascending thoracic aorta. There is slight progr ession in the extensive bilateral pulmonary airspace opacities consistent with a multifocal pneumonia . There is blunting the right lateral costophrenic angle possibly secondary to a right pleural effusi on[ IMPRESSION: Slight progression in the extensive bilateral pulmonary airspace opacities consistent wit h a multifocal pneumonia ACT 112: Negative or not required by law. Electronically signed by: Pepe Sullivan M.D. 12/19/2020 2:29 PM
[2020-12-19] MEDS: METOPROLOL TARTRATE 25 MG TAB PO SCH (21:23)
[2020-12-20 06:17] LABS: Hematocrit (blood only) 40.6 % (42-52); Hemoglobin 14.2 g/dL (14.0-18.0); Mean Corpuscular Hemoglobin 33.2 pg (25-34); Mean Corpuscular Volume 94.9 fL (80-100); Red Blood Count 4.28 M/uL (4.7-6.1); White Blood Count 12.96 K/uL (4.8-10.8)
[2020-12-20 06:18] LABS: Mean Platelet Volume 9.9 fL (7.4-10.4); Platelet Count 408 K/uL (130-400); RDW Standard Deviation 44.8 fL (36.4-46.3)
[2020-12-20 06:49] LABS: Creatinine Clr Calc Pharmacy 96.5 ml/min; Est GFR (African American) 98.3 ml/min; Est GFR (Non-African American) 84.9 ml/min
[2020-12-20] MEDS: ZINC SULFATE 220 MG CAPSULE PO SCH (08:16)
[2020-12-20] MEDS: FUROSEMIDE 20 MG in SYRINGE 0 ML IV SCH (08:17)
[2020-12-20] MEDS: METOPROLOL TARTRATE 50 MG TAB PO SCH (08:17)
[2020-12-20] MEDS: amLODIPine BESYLATE 5 MG TAB PO SCH (08:17)
[2020-12-20] MEDS: allopurinoL 100 MG TAB PO SCH (08:17)
[2020-12-20] MEDS: dexAMETHasone 10 MG in SYRINGE 0 ML IV SCH (08:21)
[2020-12-20] MEDS: ENOXAPARIN INJ 60 MG/0.6 ML SYR SQ SCH ×2 (12:17→23:55)
[2020-12-20] MEDS: levoFLOXacin/D5W 750 MG/150 ML BAG IV SCH (12:17)
--- NOTE | 2020-12-20 15:20 | Hospitalist Progress Note ---
Date of Service December 20, 2020 Assessment & Plan (1) Acute respiratory failure: due to COVID 19 pneumonia remains stable on 13L wall high flow, has been at the same oxygen requirement for 5 days however, today he looks the most comfortable he has looked all week laying in left lateral position, stayed prone for three hours last night comfortable sitting at the edge of the bed which is an improvement continue standard treatment for COVID 19 anticipate him being here through the weekend and middle of next week decent response to Lasix 20mg IV this morning, will give it again tomorrow (2) COVID-19: Patient has Covid pneumonia with extensive bilateral ground glass opacities on imaging around day 10 of illness on presentation, he did receive a vaccine shot about a week ago continue dexamethasone 10mg IV daily, day 7 of 10 completed 5 days of Remdesivir continue Levaquin, day 7 of Lasix 20mg IV qAM for negative fluid balance supportive care, vitals stable, no fever anticipate him being here several days to a week CRP down to 1 on 12/19 CXR on 12/19 with infiltrates but overall they look improved compared to 12/14 (3) Hypertension: Continue metoprolol BP quite elevated, added Norvasc 5mg daily then increased it to 10mg daily Hydralazine 10mg IV q6 PRN for resistant hypertension BP better today (4) Psoriasis: (5) Hyponatremia: likely due to poor solute intake, did not eat much for 7 days eating much better now Na is now normal (6) DVT prophylaxis: Patient will be on Covid DVT prophylaxis 0.5/kg every 12 try melatonin for sleep aid to not sedate to reduce ventilation Admission and Anticipated Discharge Date Admission Date: December 14, 2020 Subjective patient doing great today, probably the best he has looked and felt he is still on 13L, RN has tried to cut him back but not successful he is not sure if he had a good response to the Lasix, but he does admit that he urinated a lot while sitting on the toilet for 30 minutes did not measure the amount he feels like he is breathing easier, still coughing but less appetite is good, moving his bowels no fever, no chest pain, no nausea Review of Systems Review of Systems: All systems reviewed & are unremarkable except as noted in Subjective Respiratory: + cough, + dyspnea and + dyspnea on exertion; no sputum production Physical Exam Constitutional: well developed, well nourished and comfortable; no acute distress Neck: trachea midline, no thyromegaly Respiratory: normal respiratory effort and + cough; no respiratory distress Auscultation: lungs clear to auscultation bilaterally Cardiovascular: RRR, no murmur, no edema Gastrointestinal (Abdomen): normal bowel sounds, soft, nontender, no hepatosplenomegaly Musculoskeletal: no cyanosis or clubbing, extremities motor strength 5/5 Skin: no rashes, warm and dry Neurologic: patellar DTR's 2+ bilat, sensation intact and PERRL, EOMI, accommodation nl, no face palsy, no dysarthria Psychiatric: A+Ox3, euthymic affect Lymphatic: no cervical or axillary lymphadenopathy Results & Data Results & Data ([facility]) Vital Signs (Past 12 Hours) Vital Signs Temp Pulse Pulse Pulse Resp BP BP 12/20/20 11:34 36.4 C L 81 20 132/76 12/20/20 08:15 36.3 C L 78 18 153/83 H 12/20/20 07:14 72 12/20/20 03:58 36.3 C L 75 20 137/71 Pulse Ox 12/20/20 11:34 93 12/20/20 08:15 94 12/20/20 07:14 12/20/20 03:58 97 Laboratory Results Laboratory Results - last 24 hr 12/20/20 12/20/20 05:54 05:54 WBC 12.96 H RBC 4.28 L Hgb 14.2 Hct 40.6 L MCV 94.9 MCH 33.2 MCHC 35.0 RDW Std Deviation 44.8 RDW Coeff of [place] 13.0 Plt Count 408 H MPV 9.9 Creatinine 0.95 Est Cr Clr Drug Dosing 96.5 Est GFR ( Amer) 98.3 Est GFR (Non-Af Amer) 84.9 Medications Administered Current Inpatient Medications Acetaminophen (Acetaminophen 325 Mg Tab) 650 mg PO Q4H PRN PRN Reason: Pain or Fever Stop: 01/13/21 22:14 Last Admin: 12/15/20 07:43 Dose: 650 mg Documented by: Al Hydrox/Mg Hydrox/Simethicone (Aluminum/Magnesium Susp 30 Ml Udc) 15 ml PO Q4H PRN PRN Reason: Dyspepsia Stop: 01/13/21 22:14 Allopurinol (Allopurinol 100 Mg Tab) 100 mg PO DAILY [facility] Stop: 01/14/21 08:59 Last Admin: 12/20/20 08:17 Dose: 100 mg Documented by: Amlodipine Besylate (Amlodipine Besylate 5 Mg Tab) 10 mg PO QAM [facility] Stop: 01/17/21 08:59 Last Admin: 12/20/20 08:17 Dose: 10 mg Documented by: Enoxaparin Sodium (Enoxaparin Inj 60 Mg/0.6 Ml Syr) 50 mg SQ Q12H [facility] Stop: 01/13/21 23:29 Last Admin: 12/20/20 12:17 Dose: 50 mg Documented by: Hydralazine HCl (Hydralazine Hcl 20 Mg/Ml Vial) 10 mg IV Q6 PRN PRN Reason: Blood Pressure - High Stop: 01/16/21 16:53 Last Admin: 12/17/20 23:05 Dose: 10 mg Documented by: Levofloxacin/Dextrose (Levaquin/D5w) 750 mg in 150 mls @ 100 mls/hr IV Q24H [facility]; Protocol Stop: 12/22/20 12:59 Last Infusion: 12/20/20 13:56 Dose: Infused Documented by: Dexamethasone 10 mg/ Syringe 2.5 mls @ 1 mls/min IV DAILY [facility]; Protocol Stop: 12/24/20 08:59 Last Admin: 12/20/20 08:21 Dose: 1 mls/min Documented by: Furosemide 20 mg/ Syringe 2 mls @ 4 mls/min IV QAM [facility] Stop: 01/19/21 08:59 Last Admin: 12/20/20 08:17 Dose: 4 mls/min Documented by: Melatonin (Melatonin 3 Mg Tab) 3 mg PO HS PRN PRN Reason: Sleep Stop: 01/16/21 23:34 Last Admin: 12/19/20 01:20 Dose: 3 mg Documented by: Metoprolol Tartrate (Metoprolol Tartrate 25 Mg Tab) 25 mg PO QPM [facility] Stop: 01/13/21 22:14 Last Admin: 12/19/20 21:23 Dose: 25 mg Documented by: Metoprolol Tartrate (Metoprolol Tartrate 50 Mg Tab) 50 mg PO QAM [facility] Stop: 01/14/21 08:59 Last Admin: 12/20/20 08:17 Dose: 50 mg Documented by: Morphine Sulfate (Morphine Sulfate 2 Mg/Ml Carp) 2 mg IV Q30M PRN PRN Reason: Chest Pain Stop: 12/28/20 22:14 Ondansetron HCl (Ondansetron Inj 2 Mg/Ml 2 Ml Vial) 4 mg IV Q6H PRN PRN Reason: Nausea Stop: 01/13/21 22:14 Polyethylene Glycol (Polyethylene (Miralax) 17 Gm Pack) 17 gm PO DAILY PRN PRN Reason: Constipation Stop: 01/13/21 22:14 Zinc Sulfate (Zinc Sulfate 220 Mg Capsule) 220 mg PO DAILY [facility] Stop: 01/14/21 08:59 Last Admin: 12/20/20 08:16 Dose: 220 mg Documented by: PG Care Time/CCT Total # of Minutes Spent Total Time Spent with Patient: Total time spent is greater than 50% in coordination of care (as documented) at patient's floor/unit and/or counseling patient: Coding Level of Care Code 27627 Subseq Hosp Care Lvl 3 Diagnoses Acute respiratory failure J96.00 COVID-19 U07.1 Hypertension I10 Psoriasis L40.9 Hyponatremia E87.1 DVT prophylaxis Z29.9
[2020-12-20] MEDS: METOPROLOL TARTRATE 25 MG TAB PO SCH (21:12)
[2020-12-21] MEDS: amLODIPine BESYLATE 5 MG TAB PO SCH (07:42)
[2020-12-21] MEDS: METOPROLOL TARTRATE 50 MG TAB PO SCH (07:42)
[2020-12-21] MEDS: allopurinoL 100 MG TAB PO SCH (07:43)
[2020-12-21] MEDS: dexAMETHasone 10 MG in SYRINGE 0 ML IV SCH (07:43)
[2020-12-21] MEDS: ZINC SULFATE 220 MG CAPSULE PO SCH (07:44)
[2020-12-21] MEDS: FUROSEMIDE 20 MG in SYRINGE 0 ML IV SCH (07:44)
--- NOTE | 2020-12-21 09:21 | Hospitalist Progress Note ---
Date of Service December 21, 2020 Assessment & Plan (1) Acute respiratory failure: due to COVID 19 pneumonia titrated down to 7L wall high flow, big improvement the past 24 hours laying in left lateral position, can lay prone at night comfortable sitting up, coughing less continue standard treatment for COVID 19 anticipate him being here through the weekend and middle of next week decent response to Lasix 20mg IV yesterday and today, likely give one more dose tomorrow AM (2) COVID-19: Patient has Covid pneumonia with extensive bilateral ground glass opacities on imaging around day 10 of illness on presentation, he did receive a vaccine shot about a week ago continue dexamethasone 10mg IV daily, day 8 of 10 completed 5 days of Remdesivir continue Levaquin, day 7 of 7 Lasix 20mg IV qAM for negative fluid balance supportive care, vitals stable, no fever anticipate him being here several days to a week CRP down to 1 on 12/19 CXR on 12/19 with infiltrates but overall they look improved compared to 12/14 (3) Hypertension: Continue metoprolol BP quite elevated, added Norvasc 5mg daily then increased it to 10mg daily Hydralazine 10mg IV q6 PRN for resistant hypertension BP 160/90 this morning prior to medications (4) Psoriasis: (5) Hyponatremia: likely due to poor solute intake, did not eat much for 7 days eating much better now Na is now normal (6) DVT prophylaxis: Patient will be on Covid DVT prophylaxis 0.5/kg every 12 try melatonin for sleep aid to not sedate to reduce ventilation Admission and Anticipated Discharge Date Admission Date: December 14, 2020 Subjective patient down to 7L today, he is very pleased, first time he has been lower than 13L all week he feels well, he is eating everything, sleeping well, no fever, coughing less, no chest pain got Lasix 20mg IV this morning and he is making urine already, sitting on toilet waiting to have a BM no labs today discussed that once we get down to 2L and he is comfortable could get a two step and talk about discharge Review of Systems Review of Systems: All systems reviewed & are unremarkable except as noted in Subjective Physical Exam Constitutional: well developed, well nourished and comfortable; no acute distress Neck: trachea midline, no thyromegaly Respiratory: normal respiratory effort and + cough; no respiratory distress Auscultation: lungs clear to auscultation bilaterally Cardiovascular: RRR, no murmur, no edema Gastrointestinal (Abdomen): normal bowel sounds, soft, nontender, no hepatosplenomegaly Musculoskeletal: no cyanosis or clubbing, extremities motor strength 5/5 Skin: no rashes, warm and dry Neurologic: patellar DTR's 2+ bilat, sensation intact and PERRL, EOMI, accommodation nl, no face palsy, no dysarthria Psychiatric: A+Ox3, euthymic affect Lymphatic: no cervical or axillary lymphadenopathy Results & Data Results & Data ([facility]) Vital Signs (Past 12 Hours) Vital Signs Temp Pulse Pulse Pulse Resp BP Pulse Ox 12/21/20 07:41 36.3 C L 81 18 161/90 H 93 12/21/20 07:14 66 12/21/20 03:10 36.7 C 68 18 139/88 98 12/20/20 23:56 36.8 C 74 16 141/80 H 97 Medications Administered Current Inpatient Medications Acetaminophen (Acetaminophen 325 Mg Tab) 650 mg PO Q4H PRN PRN Reason: Pain or Fever Stop: 01/13/21 22:14 Last Admin: 12/15/20 07:43 Dose: 650 mg Documented by: Al Hydrox/Mg Hydrox/Simethicone (Aluminum/Magnesium Susp 30 Ml Udc) 15 ml PO Q4H PRN PRN Reason: Dyspepsia Stop: 01/13/21 22:14 Allopurinol (Allopurinol 100 Mg Tab) 100 mg PO DAILY [facility] Stop: 01/14/21 08:59 Last Admin: 12/21/20 07:43 Dose: 100 mg Documented by: Amlodipine Besylate (Amlodipine Besylate 5 Mg Tab) 10 mg PO QAM [facility] Stop: 01/17/21 08:59 Last Admin: 12/21/20 07:42 Dose: 10 mg Documented by: Enoxaparin Sodium (Enoxaparin Inj 60 Mg/0.6 Ml Syr) 50 mg SQ Q12H [facility] Stop: 01/13/21 23:29 Last Admin: 12/20/20 23:55 Dose: 50 mg Documented by: Hydralazine HCl (Hydralazine Hcl 20 Mg/Ml Vial) 10 mg IV Q6 PRN PRN Reason: Blood Pressure - High Stop: 01/16/21 16:53 Last Admin: 12/17/20 23:05 Dose: 10 mg Documented by: Levofloxacin/Dextrose (Levaquin/D5w) 750 mg in 150 mls @ 100 mls/hr IV Q24H [facility]; Protocol Stop: 12/22/20 12:59 Last Infusion: 12/20/20 13:56 Dose: Infused Documented by: Dexamethasone 10 mg/ Syringe 2.5 mls @ 1 mls/min IV DAILY [facility]; Protocol Stop: 12/24/20 08:59 Last Admin: 12/21/20 07:43 Dose: 1 mls/min Documented by: Furosemide 20 mg/ Syringe 2 mls @ 4 mls/min IV QAM [facility] Stop: 01/19/21 08:59 Last Admin: 12/21/20 07:44 Dose: 4 mls/min Documented by: Melatonin (Melatonin 3 Mg Tab) 3 mg PO HS PRN PRN Reason: Sleep Stop: 01/16/21 23:34 Last Admin: 12/19/20 01:20 Dose: 3 mg Documented by: Metoprolol Tartrate (Metoprolol Tartrate 25 Mg Tab) 25 mg PO QPM [facility] Stop: 01/13/21 22:14 Last Admin: 12/20/20 21:12 Dose: 25 mg Documented by: Metoprolol Tartrate (Metoprolol Tartrate 50 Mg Tab) 50 mg PO QAM [facility] Stop: 01/14/21 08:59 Last Admin: 12/21/20 07:42 Dose: 50 mg Documented by: Morphine Sulfate (Morphine Sulfate 2 Mg/Ml Carp) 2 mg IV Q30M PRN PRN Reason: Chest Pain Stop: 12/28/20 22:14 Ondansetron HCl (Ondansetron Inj 2 Mg/Ml 2 Ml Vial) 4 mg IV Q6H PRN PRN Reason: Nausea Stop: 01/13/21 22:14 Polyethylene Glycol (Polyethylene (Miralax) 17 Gm Pack) 17 gm PO DAILY PRN PRN Reason: Constipation Stop: 01/13/21 22:14 Zinc Sulfate (Zinc Sulfate 220 Mg Capsule) 220 mg PO DAILY [facility] Stop: 01/14/21 08:59 Last Admin: 12/21/20 07:44 Dose: 220 mg Documented by: PG Care Time/CCT Total # of Minutes Spent Total Time Spent with Patient: Total time spent is greater than 50% in coordination of care (as documented) at patient's floor/unit and/or counseling patient: Coding Level of Care Code 50577 Subseq Hosp Care Lvl 2 Diagnoses Acute respiratory failure J96.00 COVID-19 U07.1 Hypertension I10 Psoriasis L40.9 Hyponatremia E87.1 DVT prophylaxis Z29.9
[2020-12-21] MEDS: levoFLOXacin/D5W 750 MG/150 ML BAG IV SCH (12:11)
[2020-12-21] MEDS: ENOXAPARIN INJ 60 MG/0.6 ML SYR SQ SCH ×2 (12:12→23:19)
[2020-12-21] MEDS: METOPROLOL TARTRATE 25 MG TAB PO SCH (20:09)
[2020-12-22] MEDS: METOPROLOL TARTRATE 50 MG TAB PO SCH (07:45)
[2020-12-22] MEDS: dexAMETHasone 10 MG in SYRINGE 0 ML IV SCH (07:46)
[2020-12-22] MEDS: amLODIPine BESYLATE 5 MG TAB PO SCH (07:46)
[2020-12-22] MEDS: FUROSEMIDE 20 MG in SYRINGE 0 ML IV SCH (07:46)
[2020-12-22] MEDS: allopurinoL 100 MG TAB PO SCH (07:46)
[2020-12-22] MEDS: ZINC SULFATE 220 MG CAPSULE PO SCH (07:46)
--- NOTE | 2020-12-22 12:36 | Discharge Summary ---
Date of Service December 22, 2020 Admission HPI Per Admitting Provider 65-year-old male who suffers from psoriasis and hypertension who presents with approximately 10-day history of progressive pulmonary symptoms. The patient works at [employer] and 3 weeks ago other members of the staff were diagnosed with Covid. At that time the patient underwent rapid test at urgent center and his Covid test was negative. Approximately 2 Wednesdays prior to admission he began having headache pressure and chest congestion however he still proceeded to get his Covid vaccine approximately 6 days ago. His symptoms progressively worsened and his respiratory status became with more and more shortness of breath nonproductive cough increasing fatigue and sinus and headache pain he has had no diarrhea he has had altered taste of food and anorexia. In the emergency department he is found to have Covid 19+ testing he is severely tachypneic he is markedly hypoxemic requiring high flow nasal cannula his chest x-ray has significant changes. CRP is pending LFTs and platelets are appropriate Principal Diagnosis COVID 19 pneumonia with acute hypoxic respiratory failure Discharge Exam Constitutional well developed, well nourished and comfortable; no acute distress Neck trachea midline, no thyromegaly Respiratory normal respiratory effort and + cough; no respiratory distress Auscultation: lungs clear to auscultation bilaterally Cardiovascular RRR, no murmur, no edema Gastrointestinal (Abdomen) normal bowel sounds, soft, nontender, no hepatosplenomegaly Musculoskeletal no cyanosis or clubbing, extremities motor strength 5/5 Skin no rashes, warm and dry Neurologic patellar DTR's 2+ bilat, sensation intact and PERRL, EOMI, accommodation nl, no face palsy, no dysarthria Psychiatric A+Ox3, euthymic affect Lymphatic no cervical or axillary lymphadenopathy Discharge Data Allergies Allergy/AdvReac Type Severity Reaction Status Date / Time Iodinated Contrast Media Allergy Intermediate Hives Verified 12/14/20 15:08 Consultations 12/14/20 17:07 ED Decision to Admit Stat 12/15/20 07:52 Consult Pulmonology Routine Hospital Course (1) Acute respiratory failure: due to COVID 19 pneumonia 2L NC at rest, big improvement the past 48 hours, might have been the response to Lasix IV in the morning comfortable sitting up, coughing less continue standard treatment for COVID 19 two step this morning, needs 2L at rest and 3L on exertion, arranged for home oxygen (2) COVID-19: Patient has Covid pneumonia with extensive bilateral ground glass opacities on imaging around day 10 of illness on presentation, he did receive a vaccine shot about a week prior to admission treated with dexamethasone 10mg IV daily, received 9 days, will titrated down to 6mg PO daily for 4 more days then stop completed 5 days of Remdesivir completed 7 days of Levaquin Lasix 20mg IV qAM for negative fluid balance, received three doses, worked well, now is euvolemic CRP down to 1 on 12/19 CXR on 12/19 with infiltrates but overall they look much improved compared to 12/14 (3) Hypertension: Continue metoprolol BP quite elevated, added Norvasc 5mg daily then increased it to 10mg daily Hydralazine 10mg IV q6 PRN for resistant hypertension BP 160/100, continue metoprolol and the Norvasc 10mg daily on discharge follow up for BP check with Dr. Anel Mejia (4) Psoriasis: (5) Hyponatremia: likely due to poor solute intake, did not eat much for 7 days eating much better now Na is now normal (6) DVT prophylaxis: Patient will be on Covid DVT prophylaxis 0.5/kg every 12 Total Time Total Time Spent Total Time Spent (In Minutes): 33 minutes Total Time Includes: Examination of the Patient, Discharge Planning and Medication Reconciliation Discharge Plan Discharge Items Patient Disposition: Home - Self-Care Reason For Visit: ACUTE RESPIRATORY FAILURE SECONDARY TO COVID PNEUM Discharge Diagnosis: COVID 19 pneumonia Acute hypoxic respiratory failure Condition on Discharge: Good Goals: complete course of dexamethasone stay well nourished, well hydrated, well rested Activity: Resume your previous activity Driving/Machine Use: No limitations Weightbearing: Full weightbearing Non-emergency contact: Primary Care Provider Call non-emergency contact if: you have any medication questions and your symptoms worsen Follow-up/Referrals: Jesus Sutherland MD [Primary Care Provider] - (one week) Diet: Regular Addtl Attending Provider Instructions: Medications: - DEXAMETHASONE: 6mg daily x 4 more days, start tomorrow morning - AMLODIPINE: new blood pressure medication added while here, 10mg daily COVID 19 pneumonia, acute hypoxic respiratory failure responded well to dexamethasone, Remdesivir, Levaquin (antibiotic) starting to come down off oxygen the past two days, stable today on 2L at rest will prescribe you 2L nasal canula at all times at home, increase to 3L on exertion I suspect you will need the oxygen for about a week, can follow up with Dr. Virgilio Mejia in the office, he can check your pulse ox finish 4 more days of dexamethasone you do not need to quarantine, out of the isolation period as we discussed, I would wait a few months before getting 2nd COVID vaccine shot you now have natural immunity coupled with the first shot you got Pending Studies at Discharge: No Stand-Alone Forms: My [facility], Smoking Cessation Medications and DC Order Prescriptions: New amlodipine [Norvasc] 5 mg Tablet 10 mg PO QAM 30 Days Qty: 60 RF: 3 dexamethasone 4 mg tablet 6 mg PO DAILY 4 Days Qty: 6 RF: 0 Continued allopurinol 100 mg tablet 100 mg PO DAILY RF: 0 ascorbic acid (vitamin C) [Vitamin C] 500 mg Tablet 1,500 mg PO DAILY RF: 0 metoprolol tartrate 50 mg tablet See Rx Instructions .ROUTE .COMPLEX RF: 0 zinc 50 mg Tablet 50 mg PO DAILY RF: 0 cholecalciferol (vitamin D3) [Vitamin D3] 25 mcg (1,000 unit) Capsule 12.5 mcg PO DAILY RF: 0 Discontinued amoxicillin-pot clavulanate 500-125 mg tablet 1 tab PO TID RF: 0 Discharge Orders: Discharge Order (Routine); Ordered 12/22/20 Ordered By: Amilcar Taveras Admission Data Admit Date/Time: 12/14/20 18:03 Attending Provider: Amilcar Taveras Admit Provider: Nitin Rizvi Primary Care Provider: Jesus Sutherland Other Providers: Nitin Rizvi ; Del Todd Coding Level of Care Code D/C Day Management >30 mins Diagnoses Acute respiratory failure J96.00 COVID-19 U07.1 Hypertension I10 Psoriasis L40.9 Hyponatremia E87.1 DVT prophylaxis Z29.9
[2020-12-22] MEDS: ENOXAPARIN INJ 60 MG/0.6 ML SYR SQ SCH (13:10)
== END 2020-12-22 14:05 | disposition home or self-care (01) | DRG 177 ==
LOC: ED 13:57 → 2E 18:03 → SUATTDRO 18:03 → 2E 21:38